=== PATIENT | male | born 1995 | race Caucasian/White ===

== ENCOUNTER 2019-09-30 11:47 | Inpatient (IN) | payer OTHER ==
[2019-09-30] MEDS ORDERED: MENTHOL/PHENOL 1 EACH UD MM PRN (12:33)
[2019-09-30] MEDS ORDERED: IBUPROFEN 400 MG TABLET (FP) PO PRN (12:33)
[2019-09-30] MEDS ORDERED: cloNIDine HCL 0.1 MG TABLET PO PRN (12:33)
[2019-09-30] MEDS ORDERED: ACETAMINOPHEN 325 MG TABLET (FP) PO PRN ×2 (12:33)
[2019-09-30] MEDS ORDERED: MAG HYDROX/AL HYDROX/SIMETH 30 ML UNIT-DOSE CUP PO PRN (12:33)
[2019-09-30] MEDS ORDERED: ONDANSETRON *ODT* 4 MG TABLET SL PRN (12:33)
[2019-09-30] MEDS ORDERED: BISMUTH SUBSALICYLATE 524 MG/30 ML UD PO PRN (12:33)
[2019-09-30] MEDS ORDERED: MAGNESIUM CITRATE 300 ML BOTTLE PO PRN (12:33)
[2019-09-30] MEDS ORDERED: MAGNESIUM HYDROX 2400MG/30ML ORAL SUSPENSION 30 ML CUP PO PRN (12:33)
[2019-09-30 12:34] VITALS: BMI 35.2
[2019-09-30] MEDS ORDERED: METHADONE HCL 10 MG TABLET (FOR DETOX USE ONLY) PO ONE (13:15)
[2019-09-30] MEDS: PRENATAL VITAMINS W/ FOLIC ACID TABLET (FP) PO SCH (13:21)
[2019-09-30] MEDS: hydrOXYzine PAMOATE 25 MG CAPSULE (FP) PO SCH ×3 (13:21→21:01)
[2019-09-30] MEDS: METHOCARBAMOL 500 MG TABLET PO PRN ×2 (13:21→21:01)
[2019-09-30 17:16] LABS: HEMATOCRIT 35.8 % (35.4-49); MCH 28.9 pg (25.7-33.7); MCHC 33.6 g/dl (32.0-35.9); MEAN CELL VOLUME 86.1 fl (80-96); MEAN PLT VOLUME 9.2 fl (7.5-11.1); PLATELET COUNT 269 K/MM3 (134-434); RBC 4.16 M/mm3 (4.00-5.60); RDW 14.1 % (11.9-15.9); WHITE BLOOD COUNT 6.3 K/mm3 (4.0-10.0)
[2019-09-30 17:28] LABS: ALBUMIN 4.3 g/dl (3.4-5.0); BILIRUBIN,TOTAL 0.6 mg/dL (0.2-1); CALCIUM 9.3 mg/dL (8.5-10.1); CREATININE 0.8 mg/dL (0.55-1.3); POTASSIUM 4.5 mmol/L (3.5-5.1); TOT PROT 7.4 g/dl (6.4-8.2)
[2019-09-30] MEDS ORDERED: MELATONIN 5 MG TABLETS PO SCH (22:00)
[2019-09-30] MEDS ORDERED: THIAMINE HCL 100 MG TABLET (FP) PO SCH (22:00)
[2019-10-01] MEDS: hydrOXYzine PAMOATE 25 MG CAPSULE (FP) PO SCH ×4 (05:52→17:52)
[2019-10-01] MEDS ORDERED: METHADONE HCL 10 MG TABLET (FOR DETOX USE ONLY) ONE (08:59)
[2019-10-01] MEDS ORDERED: METHADONE HCL 5 MG TABLET (FOR DETOX USE ONLY) ONE (09:00)
[2019-10-01] MEDS ORDERED: diazePAM 5 MG TABLET PO PRN (09:44)
[2019-10-01] MEDS ORDERED: METHADONE (DETOX) 20 MG, METHADONE (DETOX) 5 MG PO ONE (10:00)
[2019-10-01] MEDS: PRENATAL VITAMINS W/ FOLIC ACID TABLET (FP) PO SCH (10:23)
[2019-10-01 18:14] VITALS: BP 112/76; PULSE 65; TEMP 97.5
[2019-10-02] MEDS ORDERED: METHADONE HCL 10 MG TABLET (FOR DETOX USE ONLY) PO ONE (10:00)
[2019-10-03] MEDS ORDERED: METHADONE (DETOX) 10 MG, METHADONE (DETOX) 5 MG PO ONE (10:00)
[2019-10-04] MEDS ORDERED: METHADONE HCL 10 MG TABLET (FOR DETOX USE ONLY) PO ONE (10:00)
[2019-10-05] MEDS ORDERED: METHADONE HCL 5 MG TABLET (FOR DETOX USE ONLY) PO ONE (06:00)
== END 2019-10-01 18:02 | disposition left against medical advice (07) | DRG 770 ==
LOC: YASAS 11:47 → Y3N 12:56
PROVIDERS: ADMIT Allergy & Immunology; ATTEND Allergy & Immunology
PROC: HZ2ZZZZ Detoxification Services for Substance Abuse Treatment (ICD-10-PCS; principal; 2019-09-30)
DX: F11.23 Opioid dependence with withdrawal (principal); F14.20 Cocaine dependence, uncomplicated; F12.10 Cannabis abuse, uncomplicated; F17.210 Nicotine dependence, cigarettes, uncomplicated; Z59.0 Homelessness
CPT/HCPCS: 36415; 80053; 85027; 86780; 93005; 93010; J0735; Q0162; U0003

== ENCOUNTER 2020-01-20 12:02 | Inpatient (IN) | payer OTHER ==
--- NOTE | 2020-01-20 12:05 | BHS.RME ---
Substance Use & Tx History - Substance Use History Heroin Substance amount: 8-10 bags Frequency of use: Daily Substance route: Injection (ex: intravenous or skin popping) Date of Last Use: 01/19/20 (started age 19) Marijuana/Hashish Substance amount: 1 joint Frequency of use: Daily Substance route: Smoking Date of Last Use: 01/19/20 (started age 13) Benzodiazepines Substance amount: Xanax 2 mg - 1 tab Frequency of use: Less than 3 times per week Substance route: Oral Date of Last Use: 01/19/20 (started age 19) Nicotine Substance amount: 5 ciggs Frequency of use: Daily Substance route: Smoking Date of Last Use: 01/20/20 (started age 19) - Last Treatment Date of last treatment: 12/03-12/05/19 AMA Treatment type: Substance Use Disorder (JENNIFER) Where was last treatment: Detox Physical/Psych/Mental Status - Behavior General Behavior: Increased activity (restlessness, agitation) Eye Contact: Normal - Cooperativeness Cooperativeness: Cooperative - Thinking Thought Processes: Tight, Logical, Goal Directed - Physical Health Problems Is patient presently having any pain?: No Does patient presently have any injuries (include location): No Does patient currently have a fever: No Is patient : No COWS - Scale Resting Pulse: 0= VT 80 or Below Sweatin= No chills or Flushing Restless Observation: 1= Difficult to Sit Still Pupil Size: 1= Pupils >than Normal Bone or Joint Aches: 1= Mild Discomfort Runny Nose/ Eye Tearin= Runny Nose/Eyes GI Upset > 30mins: 1= Stomach Cramp Tremor Observation: 1= Tremor [place], Not Seen Yawning Observation: 1= 1-2x During Session Anxiety or Irritability: 1=Feels Anxious/Irritable Goose Flesh Skin: 3=Piloerection COWS Score: 12
[2020-01-20 12:30] VITALS: BMI 27.6
--- NOTE | 2020-01-20 12:45 | HP ---
COWS - Scale Resting Pulse: 0= NC 80 or Below Sweatin= No chills or Flushing Restless Observation: 1= Difficult to Sit Still Pupil Size: 1= Pupils >than Normal Bone or Joint Aches: 1= Mild Discomfort Runny Nose/ Eye Tearin= Runny Nose/Eyes GI Upset > 30mins: 1= Stomach Cramp Tremor Observation: 1= Tremor [place], Not Seen Yawning Observation: 1= 1-2x During Session Anxiety or Irritability: 1=Feels Anxious/Irritable Goose Flesh Skin: 3=Piloerection COWS Score: 12 CIWA Score - Admission Criteria [facility] Guidelines: Admission for Medically Managed Detox: Requires at least one of the followin. CIWA greater than 12 2. Seizures within the past 24 hours 3. Delirium tremens within the past 24 hours 4. Hallucinations within the past 24 hours 5. Acute intervention needed for co occurring medical disorder 6. Acute intervention needed for co occurring psychiatric disorder 7. Severe withdrawal that cannot be handled at a lower level of care (continued vomiting, continued diarrhea, abnormal vital signs) requiring intravenous medication and/or fluids 8. Admitting History and Physical - Admission History of Present Illness: 24 yo M presenting for opioid detox; "finally want to improve myself, stop the heroin, and get a job." Pt was at [facility] 09/29-09/30 (left AMA); 12/03-12/04 (left AMA). Pt reports no days of sobriety since leaving [facility] last time. He has agreed with a contract to stay for detox and rehab. Pt meets criteria due to high risk for OD and extent of substance use.. PMH - none PSH - none Psych - none Soc/Domiciled - homeless (will sleep at friends' or cousins' house, who use as well) Legal - none - Substance Use History Heroin Substance amount: 8-10 bags Frequency of use: Daily Substance route: Injection (ex: intravenous or skin popping) Date of Last Use: 01/19/20 (started age 19) Marijuana/Hashish Substance amount: 1 joint Frequency of use: Daily Substance route: Smoking Date of Last Use: 01/19/20 (started age 13) Benzodiazepines Substance amount: Xanax 2 mg - 1 tab Frequency of use: Less than 3 times per week Substance route: Oral Date of Last Use: 01/19/20 (started age 19) Nicotine Substance amount: 5 ciggs Frequency of use: Daily Substance route: Smoking Date of Last Use: 01/20/20 (started age 19) - Last Treatment Date of last treatment: 12/03-12/05/19 AMA Treatment type: Substance Use Disorder (JENNIFER) Where was last treatment: Detox History Source: Patient Limitations to Obtaining History: No Limitations - Smoking History Smoking history: Current every day smoker Have you smoked in the past 12 months: Yes Aproximately how many cigarettes per day: 5 Admission ROS S - HPI Allergies/Adverse Reactions: Allergies Allergy/AdvReac Type Severity Reaction Status Date / Time No Known Allergies Allergy Verified 12/04/19 12:19 - Ebola screening Have you traveled outside of the country in the last 21 days: No Have you been sick,other than usual withdrawal symptoms: No Do you have a fever: No - Review of Systems Constitutional: No Symptoms Reported, Diaphoresis, Changes in sleep (insomnia) EENT: reports: No Symptoms Reported Respiratory: reports: No Symptoms reported Cardiac: reports: No Symptoms Reported GI: reports: Constipated, Abdominal cramping : reports: No Symptoms Reported Musculoskeletal: reports: Muscle Pain (diffuse muscle aches) Integumentary: reports: No Symptoms Reported, Other (piloerection) Neuro: reports: Headache (mild headache), Tremors (felt, not seen) Endocrine: reports: No Symptoms Reported Hematology: reports: No Symptoms Reported Psychiatric: reports: Orientated x3, Agitated, Anxious, Depressed (no SI/HI) Patient History - Patient Medical History Hx Asthma: No Hx Chronic Obstructive Pulmonary Disease (COPD): No Hx Cardiac Disorders: No Hx Hypertension: No Hx Seizures: No Hx Diabetes: No Hx Gastrointestinal Disorders: No Hx Genitourinary Disorders: No Hx Sexually Transmitted Disorders: No Hx Renal Disease (ESRD): No Hx Depression: Yes Hx Suicide Attempt: No Hx Schizophrenia: No - Patient Surgical History Past Surgical History: No Hx Neurologic Surgery: No Hx Cataract Extraction: No Hx Cardiac Surgery: No Hx Lung Surgery: No Hx Breast Surgery: No Hx Breast Biopsy: No Hx Abdominal Surgery: No Hx Appendectomy: No Hx Cholecystectomy: No Hx Genitourinary Surgery: No Hx Section: No Hx Orthopedic Surgery: No Anesthesia Reaction: No - PPD History Date: 12/06/19 - Smoking Cessation Smoking history: Current every day smoker Have you smoked in the past 12 months: Yes Aproximately how many cigarettes per day: 5 Cigars Per Day: 0 Hx Chewing Tobacco Use: No Initiated information on smoking cessation: Yes 'Breaking Loose' booklet given: 01/20/20 Admission Physical Exam [facility] - Vital Signs Vital Signs: Vital Signs - 24 hr 01/20/20 12:28 Temperature 97.0 F L Pulse Rate 76 Respiratory 18 Rate - Physical General Appearance: Yes: No Apparent Distress, Nourished, Appropriately Dressed HEENTM: Yes: EOMI, Hearing grossly Normal, Normocephalic, Normal Voice Respiratory: Yes: Lungs Clear, Normal Breath Sounds, No Respiratory Distress, No Accessory Muscle Use Neck: Yes: Supple, Trachea in good position Breast: Yes: Breast Exam Deferred Cardiology: Yes: Regular Rhythm, Regular Rate Abdominal: Yes: Normal Bowel Sounds, Non Tender, Flat, Soft Genitourinary: Yes: Other (deferred) Back: Yes: Normal Inspection Musculoskeletal: Yes: full range of Motion, Gait Steady Extremities: Yes: Normal Inspection, Normal Range of Motion, Non-Tender, Tremors (felt; not seen) Neurological: Yes: Fully Oriented, Alert, Motor Strength 5/5 Integumentary: Yes: Normal Color, Dry, Warm, Other (IV sites of heroin use clean, dry, intact (no increased warmth, redness)) Cleared for Admission [facility] - Detox or Rehab [facility] Level of Care: Medically Managed Detox Regimen/Protocol: Methadone Breathalyzer - Breathalyzer Breathalyzer: 0 Urine Drug Screen - Test Device Lot number: [id number] Expiration date: 07/29/21 - Control Is test valid?: Yes - Results Drug screen NEGATIVE: No Urine drug screen results: THC-Marijuana, FEN-Fentanyl, MOP-Opiates, BZO- Benzodiazepines Inpatient Rehab Admission - Rehab Decision to Admit Inpatient rehab admission?: No
[2020-01-20] MEDS ORDERED: METHOCARBAMOL 500 MG TABLET PO PRN (13:08)
[2020-01-20] MEDS ORDERED: IBUPROFEN 400 MG TABLET (FP) PO PRN (13:08)
[2020-01-20] MEDS ORDERED: MENTHOL/PHENOL 1 EACH UD MM PRN (13:08)
[2020-01-20] MEDS ORDERED: MAGNESIUM CITRATE 300 ML BOTTLE PO PRN (13:08)
[2020-01-20] MEDS ORDERED: MAG HYDROX/AL HYDROX/SIMETH 30 ML UNIT-DOSE CUP PO PRN (13:08)
[2020-01-20] MEDS ORDERED: cloNIDine HCL 0.1 MG TABLET PO PRN (13:08)
[2020-01-20] MEDS ORDERED: ONDANSETRON *ODT* 4 MG TABLET SL PRN (13:08)
[2020-01-20] MEDS ORDERED: MAGNESIUM HYDROX 2400MG/30ML ORAL SUSPENSION 30 ML CUP PO PRN (13:08)
[2020-01-20] MEDS ORDERED: NICOTINE POLACRILEX 2 MG GUM BUC PRN (13:08)
[2020-01-20] MEDS ORDERED: ACETAMINOPHEN 325 MG TABLET (FP) PO PRN ×2 (13:08)
[2020-01-20] MEDS ORDERED: BISMUTH SUBSALICYLATE 262 MG/15 ML BTL PO PRN (13:08)
[2020-01-20] MEDS: NICOTINE 14 MG/24 HOURS TOPICAL PATCH TD SCH (13:56)
[2020-01-20] MEDS ORDERED: METHADONE HCL 10 MG TABLET (FOR DETOX USE ONLY) PO ONE (14:00)
[2020-01-20] MEDS: hydrOXYzine PAMOATE 25 MG CAPSULE (FP) PO SCH ×3 (14:00→21:30)
--- OUTSIDE RECORDS SUMMARY | 2020-01-20 14:11 | XMS ---
:1995 Author Organization [facility] Care Team Providers Name Role Phone Bernardino Jansen MD Unavailable Unavailable Jonathan Jansen MD Unavailable Unavailable Jonathan Jansen MD Unavailable Unavailable Re-disclosure Warning The records that you are about to access may contain information from federally- assisted alcohol or drug abuse programs. If such information is present, then the following federally mandated warning applies: This information has been disclosed to you from records protected by federal confidentiality rules (42 CFR part 2). The federal rules prohibit you from making any further disclosure of this information unless further disclosure is expressly permitted by the written consent of the person to whom it pertains or as otherwise permitted by 42 CFR part 2. A general authorization for the release of medical or other information is NOT sufficient for this purpose. The Federal rules restrict any use of the information to criminally investigate or prosecute any alcohol or drug abuse patient.The records that you are about to access may contain highly sensitive health information, the redisclosure of which is protected by Article 27-F of the [facility] Public Health law. If you continue you may haveaccess to information: Regarding HIV / AIDS; Provided by facilities licensed or operated by the [facility] Office of Mental Health; or Provided by the [facility] Office for People With Developmental Disabilities. If such information is present, then the following [facility] mandated warning applies: This information has been disclosed to you from confidential records which are protected by state law. State law prohibits you from making any further disclosure of this information without the specific written consent of the person to whom it pertains, or as otherwise permitted by law. Any unauthorized further disclosure in violation of state law may result in a fine or assisted sentence or both. A general authorization for the release of medical or other information is NOT sufficient authorization for further disclosure. Allergies and Adverse Reactions Type Description Substance Reaction Status Data Source(s ) Drug allergy No Known Allergies No Known Allergies [facility] Encounters Encounter Providers Location Date Indications Data Source(s ) Emergency Attender: Bernardino 05/24/2018 [facility] Justyna COHEN 12:36:00 PM [facility] - 05/24/2018 05:57:00 PM [facility] Medications Medication Brand Start Product Dose Route Administrative Pharmacy [facility] Indications Reaction Description Data Name Date Form Instructions Instructions Source(s) Trazodone Trazod 05/24/ TABLET 50 MG BY complet ONCE DAILY [facility] 2018 MOUTH ed AT BEDTIME R egional de 50 MG Hcl 12:00: Hospital Oral Tablet 00 AM of [facility] Trazodone EST Hcl Trazodone Trazod 05/24/ TABLET 50 MG BY complet ONCE DAILY [facility] 2018 MOUTH ed AT BEDTIME R egional de 50 MG Hcl 12:00: Hospital Oral Tablet 00 AM of [facility] Trazodone EST Hcl Trazodone Trazod 05/24/ TABLET 50 MG BY complet ONCE DAILY [place] Hydrochlori 2018 MOUTH ed AT BEDTIME R egional de 50 MG Hcl 12:00: Hospital Oral Tablet 00 AM of [facility] Trazodone EST Hcl Trazodone Trazod 05/24/ TABLET 50 MG [facility] AT BEDTIME R egional de 50 MG Hcl 12:00: Hospital Oral Tablet 00 AM of [facility] Trazodone EST Hcl Trazodone Trazod 05/24/ TABLET 50 MG BY complet ONCE DAILY [place] Hydrochlori 2018 MOUTH ed AT BEDTIME R egional de 50 MG Hcl 12:00: Hospital Oral Tablet 00 AM of [facility] Trazodone EST Hcl Trazodone Trazod 05/24/ TABLET 50 MG BY complet ONCE DAILY [place] Hydrochlori 2018 MOUTH ed AT BEDTIME R egional de 50 MG Hcl 12:00: Hospital Oral Tablet 00 AM of [facility] Trazodone EST Hcl Trazodone Trazod 05/24/ TABLET 50 MG BY complet ONCE DAILY [facility] one 2018 MOUTH ed AT BEDTIME R egional de 50 MG Hcl 12:00: Hospital Oral Tablet 00 AM of [facility] Trazodone EST Hcl Trazodone Trazod 05/24/ TABLET 50 MG BY complet ONCE DAILY [place] Hydrochlori one 2018 MOUTH ed AT BEDTIME R egional de 50 MG Hcl 12:00: Hospital Oral Tablet 00 AM of [facility] Trazodone EST Hcl Insurance Providers Payer name Policy type Policy ID Covered Covered libertarian's Policy P lorraine / Coverage libertarian ID relationship to Ritchie Inf ormation type ritchie [employer] [id number] SP [id number] [facility] [id number] HMO Problems, Conditions, and Diagnoses Code Display Name Description Problem Type Effective Data Sour ce(s) Dates F12.90 Cannabis use, CANNABIS USE, Diagnosis 05/24/2018 [facility] [place], U[place]PECIFIED, 12:36:00 PM Regional uncomplicated UNCOMPLICATED [facility] F11.10 Opioid abuse, OPIOID ABUSE, Diagnosis 05/24/2018 [facility] [place]complicated UNCOMPLICATED 12:36:00 PM Regiona l [facility] F39 Unspecified mood UNSPECIFIED MOOD Diagnosis 05/24/2018 [facility] [affective] [AFFECTIVE] 12:36:00 PM Regional disorder DISORDER [facility] F32.9 Major depressive MAJOR DEPRESSIVE Diagnosis 05/24/2018 [place] disorder, single DISORDER, SINGLE 12:36:00 PM R egional episode, EPISODE, [facility] Hospital of unspecified UNSPECIFIED [facility] Surgeries/Procedures Procedure Description Date Indications Data Source(s) EKG EMERGENCY DEPT 05/24/2018 [facility] ONLY 12:00:00 AM [facility] EKG EMERGENCY DEPT 05/24/2018 [facility] ONLY 12:00:00 AM [facility] EKG EMERGENCY DEPT 05/24/2018 [facility] ONLY 12:00:00 AM [facility] EKG EMERGENCY DEPT 05/24/2018 [facility] ONLY 12:00:00 AM [facility] Results ID Date Data Source [id number] 12/04/2019 12:05:00 PM EDT [facility] Name Value Range Interpretation Description Data Sup porting Code Source(s) Document(s ) SARS [facility] coronavirus 2 RNA This lab was ordered by [facility] and reported by [facility]. ID Date Data Source [id number] 09/30/2019 02:30:00 PM EDT [facility] Name Value Range Interpretation Description Data Sup porting Code Source(s) Document(s ) SARS [facility] CORONAVIRUS 2 RNA This lab was ordered by [facility] and reported by [facility]. ID Date Data Source [id number] 05/24/2018 03:35:00 PM [facility] of [id number] [facility] Name Value Range Interpretation Description Data Sup porting Code Source(s) Document(s ) Basophils 0.01 0.00-0.3 Basophils # [place] [#/volume] K/uL 0 (Auto) Regional in Blood by Hospital Automated [facility] count ID Date Data Source [id number] 05/24/2018 03:35:00 PM [facility] of [id number] [facility] Name Value Range Interpretation Description Data Sup porting Code Source(s) Document(s ) Basophils/100 0.1 % Basophils (%) [place] leukocytes in (Auto) Regional Blood by Hospital Automated [facility] count ID Date Data Source [id number] 05/24/2018 03:35:00 PM [facility] of [id number] [facility] Name Value Range Interpretation Description Data Sup porting Code Source(s) Document(s ) Eosinophils 0.03 0.00-0.5 Eosinophils # [place] [#/volume] in K/uL 0 (Auto) Regional Blood by Hospital Automated [facility] count ID Date Data Source [id number] 05/24/2018 03:35:00 PM [facility] of [id number] [facility] Name Value Range Interpretation Description Data Sup porting Code Source(s) Document(s ) Eosinophils/10 0.4 % Eosinophils (%) [place] 0 leukocytes (Auto) Regional in Blood by [facility] Automated [facility] count ID Date Data Source [id number] 05/24/2018 03:35:00 PM [facility] of [id number] [facility] Name Value Range Interpretation Description Data Sup porting Code Source(s) Document(s ) Hematocrit 40.9 % 38.0-51.0 Hematocrit [place] [Volume Regional Fraction] [facility] Blood by [facility] Automated count ID Date Data Source [id number] 05/24/2018 03:35:00 PM [facility] of [id number] [facility] Name Value Range Interpretation Description Data Sup porting Code Source(s) Document(s ) Hemoglobin 13.2 13.5-17. Below low normal Hemoglobin [place] [Mass/volume] gm/dL 0 Regional in Blood Hospital [facility] ID Date Data Source [id number] 05/24/2018 03:35:00 PM [facility] of [id number] [facility] Name Value Range Interpretation Description Data Sup porting Code Source(s) Document(s ) Immature 0.02 0.00-0.1 Immature [place] granulocytes K/uL 0 Granulocyte # Regional [#/volume] in (Auto) Hospital Blood [facility] ID Date Data Source [id number] 05/24/2018 03:35:00 PM [facility] of [id number] [facility] Name Value Range Interpretation Description Data Sup porting Code Source(s) Document(s ) Immature 0.2 % Immature [place] granulocytes Granulocyte % Regional [#/volume] in (Auto) Hospital Blood by [facility] Automated count ID Date Data Source [id number] 05/24/2018 03:35:00 PM [facility] of [id number] [facility] Name Value Range Interpretation Description Data Sup porting Code Source(s) Document(s ) Lymphocytes 1.86 0.60-4.8 Lymphocytes # [place] [#/volume] in K/uL 0 (Auto) Regional Blood by Hospital of Automated [facility] count ID Date Data Source [id number] 05/24/2018 03:35:00 PM [facility] of [id number] [facility] Name Value Range Interpretation Description Data Sup porting Code Source(s) Document(s ) Lymphocytes/10 23.0 % Lymphocytes [place] 0 leukocytes (%) (Auto) Regional in Blood by Hospital of Automated [facility] count ID Date Data Source [id number] 05/24/2018 03:35:00 PM [facility] of [id number] [facility] Name Value Range Interpretation Description Data Sup porting Code Source(s) Document(s ) Erythrocyte 27.4 pg 26.0-34. Mean [place] mean 0 Corpuscular Regional corpuscular Hemoglobin Hospital of hemoglobin [facility] [Entitic mass] by Automated count ID Date Data Source [id number] 05/24/2018 03:35:00 PM [facility] of [id number] [facility] Name Value Range Interpretation Description Data Sup porting Code Source(s) Document(s ) Erythrocyte mean 32.3 32.0-36. Mean [place] corpuscular gm/dL 0 Corpuscular Regional hemoglobin Hemoglobin Hospital of concentration Concent [facility] [Mass/volume] by Automated count ID Date Data Source [id number] 05/24/2018 03:35:00 PM [facility] of [id number] [facility] Name Value Range Interpretation Description Data Sup porting Code Source(s) Document(s ) Erythrocyte 84.9 fL 80.0-98. Mean [place] mean 0 Corpuscular Regional corpuscular Volume Hospital of volume [facility] [Entitic volume] by Automated count ID Date Data Source [id number] 05/24/2018 03:35:00 PM [facility] of [id number] [facility] Name Value Range Interpretation Description Data Sup porting Code Source(s) Document(s ) Platelet mean 9.6 fL 8.5-13.0 Mean Platelet [place] volume Volume Regional [Entitic Hospital of volume] in C Blood by Automated count ID Date Data Source [id number] 05/24/2018 03:35:00 PM [facility] [id number] [facility] Name Value Range Interpretation Description Data Sup porting Code Source(s) Document(s ) Monocytes 0.62 0.00-1.1 Monocytes # [place] [#/volume] K/uL 0 (Auto) Regional in Blood by [facility] Automated [facility] count ID Date Data Source [id number] 05/24/2018 03:35:00 PM [facility] [id number] [facility] Name Value Range Interpretation Description Data Sup porting Code Source(s) Document(s ) Monocytes/100 7.7 % Monocytes (%) [place] leukocytes in (Auto) Regional Blood by Hospital Automated [facility] count ID Date Data Source [id number] 05/24/2018 03:35:00 PM [facility] [id number] [facility] Name Value Range Interpretation Description Data Sup porting Code Source(s) Document(s ) Neutrophils 5.53 2.00-8.4 Neutrophils # [place] [#/volume] in K/uL 0 (Auto) Regional Blood by Hospital Automated [facility] count ID Date Data Source [id number] 05/24/2018 03:35:00 PM [facility] [id number] [facility] Name Value Range Interpretation Description Data Sup porting Code Source(s) Document(s ) Neutrophils/10 68.6 % Neutrophils [place] 0 leukocytes (%) (Auto) Regional in Blood by Hospital Automated [facility] count ID Date Data Source [id number] 05/24/2018 03:35:00 PM [facility] [id number] [facility] Name Value Range Interpretation Description Data Sup porting Code Source(s) Document(s ) Nucleated 0.0 % 0.0-0.0 Nucleated RBC [place] erythrocytes/1 Relative Count Regional 00 leukocytes (auto) Hospital of [Ratio] in [facility] Blood by Automated count ID Date Data Source [id number] 05/24/2018 03:35:00 PM [facility] of [id number] [facility] Name Value Range Interpretation Description Data Sup porting Code Source(s) Document(s ) Platelets 400 K/uL 150-400 Platelet Count [place] [#/volume] Regional in Blood by Hospital Automated [facility] count ID Date Data Source [id number] 05/24/2018 03:35:00 PM [facility] of [id number] [facility] Name Value Range Interpretation Description Data Sup porting Code Source(s) Document(s ) Erythrocyte 14.5 % 11.0-15. RDW [place] distribution 0 Coefficient of Regional width [Ratio] Variation Hospital of by Automated [facility] count ID Date Data Source [id number] 05/24/2018 03:35:00 PM [facility] of [id number] [facility] Name Value Range Interpretation Description Data Sup porting Code Source(s) Document(s ) Erythrocytes 4.82 4.7-6.0 Red Blood [place] [#/volume] in M/uL Count Regional Blood by Hospital of Automated count [facility] ID Date Data Source [id number] 05/24/2018 03:35:00 PM [facility] of [id number] [facility] Name Value Range Interpretation Description Data Sup porting Code Source(s) Document(s ) Leukocytes 8.07 4.00-10. White Blood [place] [#/volume] in K/uL 50 Count Regional Blood by Hospital of Automated [facility] count ID Date Data Source [id number] 05/24/2018 03:35:00 PM [facility] of [id number] [facility] Name Value Range Interpretation Description Data Sup porting Code Source(s) Document(s ) Alanine 42 U/L 21-72 Alanine [place] aminotransferase Aminotransferase Region al [Enzymatic (ALT/SGPT) Hospital activity/volume] of [facility] in Serum or Plasma ID Date Data Source [id number] 05/24/2018 03:35:00 PM [facility] of [id number] [facility] Name Value Range Interpretation Description Data Sup porting Code Source(s) Document(s ) Albumin 4.7 g/dL 3.5-5.0 Albumin [place] [Mass/volum Regional e] in Serum Hospital of or Plasma [facility] ID Date Data Source [id number] 05/24/2018 03:35:00 PM [facility] of [id number] [facility] Name Value Range Interpretation Description Data Sup porting Code Source(s) Document(s ) Alkaline 60 U/L 38-126 Alkaline [place] phosphatase Phosphatase Regional [Enzymatic Hospital of activity/volum [facility] e] in Serum or Plasma ID Date Data Source [id number] 05/24/2018 03:35:00 PM [facility] of [id number] [facility] Name Value Range Interpretation Description Data Sup porting Code Source(s) Document(s ) Aspartate 19 U/L 17-59 Aspartate [place] aminotransferase Amino Transf Regional [Enzymatic (AST/SGOT) Hospital of activity/volume] in [facility] Serum or Plasma ID Date Data Source [id number] 05/24/2018 03:35:00 PM [facility] of [id number] [facility] Name Value Range Interpretation Description Data Sup porting Code Source(s) Document(s ) Urea 15 mg/dL 9-20 Blood Urea [place] nitrogen Nitrogen Regional [Mass/volume Hospital of ] in Serum C or Plasma ID Date Data Source [id number] 05/24/2018 03:35:00 PM [facility] of [id number] [facility] Name Value Range Interpretation Description Data Sup porting Code Source(s) Document(s ) Calcium 9.8 mg/dL 8.4-10.2 Calcium Level [place] [Mass/volum Regional e] in Serum Hospital of or Plasma [facility] ID Date Data Source [id number] 05/24/2018 03:35:00 PM [facility] of [id number] [facility] Name Value Range Interpretation Description Data Sup porting Code Source(s) Document(s ) Carbon 29 mmol/L 22-30 Carbon Dioxide [place] dioxide, Level Regional [facility] Hospital of [Moles/vol [facility] ume] in Serum or Plasma ID Date Data Source [id number] 05/24/2018 03:35:00 PM [facility] of [id number] [facility] Name Value Range Interpretation Description Data Sup porting Code Source(s) Document(s ) Chloride 104 98-107 Chloride Level [place] [Moles/volum mmol/L Regional e] in [facility] ID Date Data Source [id number] 05/24/2018 03:35:00 PM [facility] of [id number] [facility] Name Value Range Interpretation Description Data Sup porting Code Source(s) Document(s ) Creatinine 0.77 0.66-1.2 Creatinine [place] [Mass/volume] mg/dL 5 Regional in Serum or [facility] of Plasma [facility] ID Date Data Source [id number] 05/24/2018 03:35:00 PM [facility] of [id number] [facility] mL/min/1.73m2 Name Value Range Interpretation Code Description Data Asiya rce(s) Supporting Document(s ) Estimated GFR [place] (MDRD) [facility] ID Date Data Source [id number] 05/24/2018 03:35:00 PM [facility] of [id number] [facility] Name Value Range Interpretation Description Data Sup porting Code Source(s) Document(s ) Glucose 83 mg/dL 74-106 Fasting [place] [Mass/volum Glucose Regional e] in [facility] ID Date Data Source [id number] 05/24/2018 03:35:00 PM [facility] of [id number] [facility] Name Value Range Interpretation Description Data Sup porting Code Source(s) Document(s ) Potassium 4.0 3.5-5.1 Potassium [place] [Moles/volum mmol/L Level Regional e] in [facility] ID Date Data Source [id number] 05/24/2018 03:35:00 PM [facility] of [id number] [facility] Name Value Range Interpretation Description Data Sup porting Code Source(s) Document(s ) Sodium 142 137-145 Sodium Level [place] [Moles/vol mmol/L Regional ume] in Hospital [facility] or [facility] Plasma ID Date Data Source [id number] 05/24/2018 03:35:00 PM [facility] of [id number] [facility] Name Value Range Interpretation Description Data Sup porting Code Source(s) Document(s ) Bilirubin. 0.7 mg/dL 0.2-1.3 Total [place] total Bilirubin Regional [Mass/volu [facility]] in [facility] Serum or Plasma ID Date Data Source [id number] 05/24/2018 03:35:00 PM [facility] of [id number] [facility] Name Value Range Interpretation Description Data Sup porting Code Source(s) Document(s ) Protein 7.6 g/dL 6.3-8.2 Total Protein [place] [Mass/volum Regional e] in [facility] ID Date Data Source [id number] 05/24/2018 03:35:00 PM [facility] of [id number] [facility] Name Value Range Interpretation Description Data Sup porting Code Source(s) Document(s ) Ethanol 0 mg/dL Ethyl Alcohol [place] [Mass/volum Level Regional e] in [facility] ID Date Data Source [id number] 05/24/2018 03:35:00 PM [facility] of [id number] [facility] Name Value Range Interpretation Description Data Sup porting Code Source(s) Document(s ) Basophils 0.01 0.00-0.3 Basophils # [place] [#/volume] K/uL 0 (Auto) Regional in Blood by Hospital Automated [facility] count ID Date Data Source [id number] 05/24/2018 03:35:00 PM [facility] of [id number] [facility] Name Value Range Interpretation Description Data Sup porting Code Source(s) Document(s ) Basophils/100 0.1 % Basophils (%) [place] leukocytes in (Auto) Regional Blood by Hospital Automated [facility] count ID Date Data Source [id number] 05/24/2018 03:35:00 PM [facility] of [id number] [facility] Name Value Range Interpretation Description Data Sup porting Code Source(s) Document(s ) Eosinophils 0.03 0.00-0.5 Eosinophils # [place] [#/volume] in K/uL 0 (Auto) Regional Blood by Hospital Automated [facility] count ID Date Data Source [id number] 05/24/2018 03:35:00 PM [facility] of [id number] [facility] Name Value Range Interpretation Description Data Sup porting Code Source(s) Document(s ) Eosinophils/10 0.4 % Eosinophils (%) [place] 0 leukocytes (Auto) Regional in Blood by Hospital Automated [facility] count ID Date Data Source [id number] 05/24/2018 03:35:00 PM [facility] of [id number] [facility] Name Value Range Interpretation Description Data Sup porting Code Source(s) Document(s ) Hematocrit 40.9 % 38.0-51.0 Hematocrit [place] [Volume Regional Fraction] of [facility] Blood by [facility] Automated count ID Date Data Source [id number] 05/24/2018 03:35:00 PM [facility] of [id number] [facility] Name Value Range Interpretation Description Data Sup porting Code Source(s) Document(s ) Hemoglobin 13.2 13.5-17. Below low normal Hemoglobin [place] [Mass/volume] gm/dL 0 Regional in Blood [facility] ID Date Data Source [id number] 05/24/2018 03:35:00 PM [facility] of [id number] [facility] Name Value Range Interpretation Description Data Sup porting Code Source(s) Document(s ) Immature 0.02 0.00-0.1 Immature [place] granulocytes K/uL 0 Granulocyte # Regional [#/volume] in (Auto) Hospital Blood [facility] ID Date Data Source [id number] 05/24/2018 03:35:00 PM [facility] of [id number] [facility] Name Value Range Interpretation Description Data Sup porting Code Source(s) Document(s ) Immature 0.2 % Immature [place] granulocytes Granulocyte % Regional [#/volume] in (Auto) Hospital Blood by [facility] Automated count ID Date Data Source [id number] 05/24/2018 03:35:00 PM [facility] [id number] WM Name Value Range Interpretation Description Data Sup porting Code Source(s) Document(s ) Lymphocytes 1.86 0.60-4.8 Lymphocytes # [place] [#/volume] in K/uL 0 (Auto) Regional Blood by Hospital Automated [facility] count ID Date Data Source [id number] 05/24/2018 03:35:00 PM [facility] [id number] [facility] Name Value Range Interpretation Description Data Sup porting Code Source(s) Document(s ) Lymphocytes/10 23.0 % Lymphocytes [place] 0 leukocytes (%) (Auto) Regional in Blood by [facility] Automated [facility] count ID Date Data Source [id number] 05/24/2018 03:35:00 PM [facility] [id number] [facility] Name Value Range Interpretation Description Data Sup porting Code Source(s) Document(s ) Erythrocyte 27.4 pg 26.0-34. Mean [place] mean 0 Corpuscular [facility] corpuscular Hemoglobin [facility] hemoglobin [facility] [Entitic mass] by Automated count ID Date Data Source [id number] 05/24/2018 03:35:00 PM [facility] of [id number] [facility] Name Value Range Interpretation Description Data Sup porting Code Source(s) Document(s ) Erythrocyte mean 32.3 32.0-36. Mean [place] corpuscular gm/dL 0 Corpuscular Regional hemoglobin Hemoglobin [facility] [Mass/volume] by Automated count ID Date Data Source [id number] 05/24/2018 03:35:00 PM [facility] [id number] [facility] Name Value Range Interpretation Description Data Sup porting Code Source(s) Document(s ) Erythrocyte 84.9 fL 80.0-98. Mean [place] mean 0 Corpuscular [facility] corpuscular Volume [facility] volume [facility] [Entitic volume] by Automated count ID Date Data Source [id number] 05/24/2018 03:35:00 PM [facility] of [id number] [facility] Name Value Range Interpretation Description Data Sup porting Code Source(s) Document(s ) Platelet mean 9.6 fL 8.5-13.0 Mean Platelet [place] volume Volume Regional [Entitic Hospital of volume] in C Blood by Automated count ID Date Data Source [id number] 05/24/2018 03:35:00 PM [facility] [id number] [facility] Name Value Range Interpretation Description Data Sup porting Code Source(s) Document(s ) Monocytes 0.62 0.00-1.1 Monocytes # [place] [#/volume] K/uL 0 (Auto) Regional in Blood by [facility] count ID Date Data Source [id number] 05/24/2018 03:35:00 PM [facility] [id number] [facility] Name Value Range Interpretation Description Data Sup porting Code Source(s) Document(s ) Monocytes/100 7.7 % Monocytes (%) [place] leukocytes in (Auto) Regional Blood by Hospital Automated [facility] count ID Date Data Source [id number] 05/24/2018 03:35:00 PM [facility] [id number] [facility] Name Value Range Interpretation Description Data Sup porting Code Source(s) Document(s ) Neutrophils 5.53 2.00-8.4 Neutrophils # [place] [#/volume] in K/uL 0 (Auto) Regional Blood by [facility] Automated [facility] count ID Date Data Source [id number] 05/24/2018 03:35:00 PM [facility] [id number] [facility] Name Value Range Interpretation Description Data Sup porting Code Source(s) Document(s ) Neutrophils/10 68.6 % Neutrophils [place] 0 leukocytes (%) (Auto) Regional in Blood by Hospital Automated [facility] count ID Date Data Source [id number] 05/24/2018 03:35:00 PM [facility] [id number] [facility] Name Value Range Interpretation Description Data Sup porting Code Source(s) Document(s ) Nucleated 0.0 % 0.0-0.0 Nucleated RBC [place] erythrocytes/1 Relative Count Regional 00 leukocytes (auto) Hospital of [Ratio] in [facility] Blood by Automated count ID Date Data Source [id number] 05/24/2018 03:35:00 PM [facility] [id number] [facility] Name Value Range Interpretation Description Data Sup porting Code Source(s) Document(s ) Platelets 400 K/uL 150-400 Platelet Count [place] [#/volume] Regional in Blood by Hospital of Automated [facility] count ID Date Data Source [id number] 05/24/2018 03:35:00 PM [facility] [id number] [facility] Name Value Range Interpretation Description Data Sup porting Code Source(s) Document(s ) Erythrocyte 14.5 % 11.0-15. RDW [place] distribution 0 Coefficient of Regional width [Ratio] Variation Hospital of by Automated [facility] count ID Date Data Source [id number] 05/24/2018 03:35:00 PM [facility] [id number] [facility] Name Value Range Interpretation Description Data Sup porting Code Source(s) Document(s ) Erythrocytes 4.82 4.7-6.0 Red Blood [place] [#/volume] in M/uL Count Regional Blood by Hospital of Automated count [facility] ID Date Data Source [id number] 05/24/2018 03:35:00 PM [facility] [id number] [facility] Name Value Range Interpretation Description Data Sup porting Code Source(s) Document(s ) Leukocytes 8.07 4.00-10. White Blood [place] [#/volume] in K/uL 50 Count Regional Blood by Hospital of Automated [facility] count ID Date Data Source [id number] 05/24/2018 03:35:00 PM [facility] [id number] [facility] Name Value Range Interpretation Description Data Sup porting Code Source(s) Document(s ) Alanine 42 U/L 21-72 Alanine [place] aminotransferase Aminotransferase Region al [Enzymatic (ALT/SGPT) Hospital activity/volume] of [facility] in Serum or Plasma ID Date Data Source [id number] 05/24/2018 03:35:00 PM [facility] of [id number] [facility] Name Value Range Interpretation Description Data Sup porting Code Source(s) Document(s ) Albumin 4.7 g/dL 3.5-5.0 Albumin [place] [Mass/volum Regional e] in Serum Hospital of or Plasma [facility] ID Date Data Source [id number] 05/24/2018 03:35:00 PM [facility] of [id number] [facility] Name Value Range Interpretation Description Data Sup porting Code Source(s) Document(s ) Alkaline 60 U/L 38-126 Alkaline [place] phosphatase Phosphatase Regional [Enzymatic Hospital of activity/volum [facility] e] in Serum or Plasma ID Date Data Source [id number] 05/24/2018 03:35:00 PM [facility] of [id number] [facility] Name Value Range Interpretation Description Data Sup porting Code Source(s) Document(s ) Aspartate 19 U/L 17-59 Aspartate [place] aminotransferase Amino Transf Regional [Enzymatic (AST/SGOT) Hospital of activity/volume] in [facility] Serum or Plasma ID Date Data Source [id number] 05/24/2018 03:35:00 PM [facility] [id number] [facility] Name Value Range Interpretation Description Data Sup porting Code Source(s) Document(s ) Urea 15 mg/dL 9-20 Blood Urea [place] nitrogen Nitrogen Regional [Mass/volume Hospital of ] in Serum [facility] or Plasma ID Date Data Source [id number] 05/24/2018 03:35:00 PM [facility] of [id number] [facility] Name Value Range Interpretation Description Data Sup porting Code Source(s) Document(s ) Calcium 9.8 mg/dL 8.4-10.2 Calcium Level [place] [Mass/volum Regional e] in Serum Hospital of or Plasma [facility] ID Date Data Source [id number] 05/24/2018 03:35:00 PM [facility] of [id number] [facility] Name Value Range Interpretation Description Data Sup porting Code Source(s) Document(s ) Carbon 29 mmol/L 22-30 Carbon Dioxide [place] dioxide, Level Regional total Hospital of [Moles/vol [facility] ume] in Serum or Plasma ID Date Data Source [id number] 05/24/2018 03:35:00 PM [facility] of [id number] [facility] Name Value Range Interpretation Description Data Sup porting Code Source(s) Document(s ) Chloride 104 98-107 Chloride Level [place] [Moles/volum mmol/L Regional e] in [facility] ID Date Data Source [id number] 05/24/2018 03:35:00 PM [facility] of [id number] [facility] Name Value Range Interpretation Description Data Sup porting Code Source(s) Document(s ) Creatinine 0.77 0.66-1.2 Creatinine [place] [Mass/volume] mg/dL 5 Regional in [facility] ID Date Data Source [id number] 05/24/2018 03:35:00 PM [facility] of [id number] C mL/min/1.73m2 Name Value Range Interpretation Code Description Data Asiya rce(s) Supporting Document(s ) Estimated GFR [place] (MDRD) [facility] ID Date Data Source [id number] 05/24/2018 03:35:00 PM [facility] [id number] [facility] Name Value Range Interpretation Description Data Sup porting Code Source(s) Document(s ) Glucose 83 mg/dL 74-106 Fasting [place] [Mass/volum Glucose Regional e] in [facility] ID Date Data Source [id number] 05/24/2018 03:35:00 PM [facility] of [id number] [facility] Name Value Range Interpretation Description Data Sup porting Code Source(s) Document(s ) Potassium 4.0 3.5-5.1 Potassium [place] [Moles/volum mmol/L Level Regional e] in [facility] ID Date Data Source [id number] 05/24/2018 03:35:00 PM [facility] of [id number] [facility] Name Value Range Interpretation Description Data Sup porting Code Source(s) Document(s ) Sodium 142 137-145 Sodium Level [place] [Moles/vol mmol/L Regional ume] in Hospital of Serum or [facility] Plasma ID Date Data Source [id number] 05/24/2018 03:35:00 PM [facility] [id number] [facility] Name Value Range Interpretation Description Data Sup porting Code Source(s) Document(s ) Bilirubin. 0.7 mg/dL 0.2-1.3 Total [place] total Bilirubin Regional [Mass/volu [facility]] in [facility] Serum or Plasma ID Date Data Source [id number] 05/24/2018 03:35:00 PM [facility] of [id number] [facility] Name Value Range Interpretation Description Data Sup porting Code Source(s) Document(s ) Protein 7.6 g/dL 6.3-8.2 Total Protein [place] [Mass/volum Regional e] in [facility] ID Date Data Source [id number] 05/24/2018 03:35:00 PM [facility] [id number] [facility] Name Value Range Interpretation Description Data Sup porting Code Source(s) Document(s ) Ethanol 0 mg/dL Ethyl Alcohol [place] [Mass/volum Level Regional e] in [facility] ID Date Data Source [id number] 05/24/2018 03:35:00 PM [facility] [id number] [facility] Name Value Range Interpretation Description Data Sup porting Code Source(s) Document(s ) Basophils 0.01 0.00-0.3 Basophils # [place] [#/volume] K/uL 0 (Auto) Regional in Blood by [facility] count ID Date Data Source [id number] 05/24/2018 03:35:00 PM [facility] [id number] [facility] Name Value Range Interpretation Description Data Sup porting Code Source(s) Document(s ) Basophils/100 0.1 % Basophils (%) [place] leukocytes in (Auto) Regional Blood by Hospital Automated [facility] count ID Date Data Source [id number] 05/24/2018 03:35:00 PM [facility] [id number] [facility] Name Value Range Interpretation Description Data Sup porting Code Source(s) Document(s ) Eosinophils 0.03 0.00-0.5 Eosinophils # [place] [#/volume] in K/uL 0 (Auto) Regional Blood by Hospital Automated [facility] count ID Date Data Source [id number] 05/24/2018 03:35:00 PM [facility] [id number] [facility] Name Value Range Interpretation Description Data Sup porting Code Source(s) Document(s ) Eosinophils/10 0.4 % Eosinophils (%) [place] 0 leukocytes (Auto) Regional in Blood by [facility] Automated [facility] count ID Date Data Source [id number] 05/24/2018 03:35:00 PM [facility] of [id number] [facility] Name Value Range Interpretation Description Data Sup porting Code Source(s) Document(s ) Hematocrit 40.9 % 38.0-51.0 Hematocrit [place] [Volume Regional Fraction] of [facility] Blood by [facility] Automated count ID Date Data Source [id number] 05/24/2018 03:35:00 PM [facility] [id number] [facility] Name Value Range Interpretation Description Data Sup porting Code Source(s) Document(s ) Hemoglobin 13.2 13.5-17. Below low normal Hemoglobin [place] [Mass/volume] gm/dL 0 Regional in Blood [facility] ID Date Data Source [id number] 05/24/2018 03:35:00 PM [facility] [id number] [facility] Name Value Range Interpretation Description Data Sup porting Code Source(s) Document(s ) Immature 0.02 0.00-0.1 Immature [place] granulocytes K/uL 0 Granulocyte # Regional [#/volume] in (Auto) Hospital Blood [facility] ID Date Data Source [id number] 05/24/2018 03:35:00 PM [facility] of [id number] [facility] Name Value Range Interpretation Description Data Sup porting Code Source(s) Document(s ) Immature 0.2 % Immature [place] granulocytes Granulocyte % Regional [#/volume] in (Auto) [facility] Blood by [facility] Automated count ID Date Data Source [id number] 05/24/2018 03:35:00 PM [facility] [id number] [facility] Name Value Range Interpretation Description Data Sup porting Code Source(s) Document(s ) Lymphocytes 1.86 0.60-4.8 Lymphocytes # [place] [#/volume] in K/uL 0 (Auto) Regional Blood by [facility] Automated [facility] count ID Date Data Source [id number] 05/24/2018 03:35:00 PM [facility] [id number] [facility] Name Value Range Interpretation Description Data Sup porting Code Source(s) Document(s ) Lymphocytes/10 23.0 % Lymphocytes [place] 0 leukocytes (%) (Auto) Regional in Blood by [facility] Automated [facility] count ID Date Data Source [id number] 05/24/2018 03:35:00 PM [facility] [id number] [facility] Name Value Range Interpretation Description Data Sup porting Code Source(s) Document(s ) Erythrocyte 27.4 pg 26.0-34. Mean [place] mean 0 Corpuscular Regional corpuscular Hemoglobin [facility] [Entitic mass] by Automated count ID Date Data Source [id number] 05/24/2018 03:35:00 PM [facility] [id number] [facility] Name Value Range Interpretation Description Data Sup porting Code Source(s) Document(s ) Erythrocyte mean 32.3 32.0-36. Mean [place] corpuscular gm/dL 0 Corpuscular Regional hemoglobin Hemoglobin [facility] [Mass/volume] by Automated count ID Date Data Source [id number] 05/24/2018 03:35:00 PM [facility] [id number] [facility] Name Value Range Interpretation Description Data Sup porting Code Source(s) Document(s ) Erythrocyte 84.9 fL 80.0-98. Mean [place] mean 0 Corpuscular Regional corpuscular Volume Hospital of counts include [facility] beds at [facility] [Entitic volume] by Automated count ID Date Data Source [id number] 05/24/2018 03:35:00 PM [facility] [id number] [facility] Name Value Range Interpretation Description Data Sup porting Code Source(s) Document(s ) Platelet mean 9.6 fL 8.5-13.0 Mean Platelet [place] volume Volume Regional [Entitic Hospital of volume] in [facility] Blood by Automated count ID Date Data Source [id number] 05/24/2018 03:35:00 PM [facility] [id number] [facility] Name Value Range Interpretation Description Data Sup porting Code Source(s) Document(s ) Monocytes 0.62 0.00-1.1 Monocytes # [place] [#/volume] K/uL 0 (Auto) Regional in Blood by Hospital Automated [facility] count ID Date Data Source [id number] 05/24/2018 03:35:00 PM [facility] [id number] [facility] Name Value Range Interpretation Description Data Sup porting Code Source(s) Document(s ) Monocytes/100 7.7 % Monocytes (%) [place] leukocytes in (Auto) Regional Blood by Hospital [facility] count ID Date Data Source [id number] 05/24/2018 03:35:00 PM [facility] [id number] [facility] Name Value Range Interpretation Description Data Sup porting Code Source(s) Document(s ) Neutrophils 5.53 2.00-8.4 Neutrophils # [place] [#/volume] in K/uL 0 (Auto) Regional Blood by Hospital Automated [facility] count ID Date Data Source [id number] 05/24/2018 03:35:00 PM [facility] [id number] [facility] Name Value Range Interpretation Description Data Sup porting Code Source(s) Document(s ) Neutrophils/10 68.6 % Neutrophils [place] 0 leukocytes (%) (Auto) Regional in Blood by Hospital Automated [facility] count ID Date Data Source [id number] 05/24/2018 03:35:00 PM [facility] [id number] [facility] Name Value Range Interpretation Description Data Sup porting Code Source(s) Document(s ) Nucleated 0.0 % 0.0-0.0 Nucleated RBC [place] erythrocytes/1 Relative Count Regional 00 leukocytes (auto) Hospital of [Ratio] in [facility] Blood by Automated count ID Date Data Source [id number] 05/24/2018 03:35:00 PM [facility] [id number] [facility] Name Value Range Interpretation Description Data Sup porting Code Source(s) Document(s ) Platelets 400 K/uL 150-400 Platelet Count [place] [#/volume] Regional in Blood by Hospital of Automated [facility] count ID Date Data Source [id number] 05/24/2018 03:35:00 PM [facility] [id number] [facility] Name Value Range Interpretation Description Data Sup porting Code Source(s) Document(s ) Erythrocyte 14.5 % 11.0-15. RDW [place] distribution 0 Coefficient of Regional width [Ratio] Variation Hospital of by Automated [facility] count ID Date Data Source [id number] 05/24/2018 03:35:00 PM [facility] of [id number] [facility] Name Value Range Interpretation Description Data Sup porting Code Source(s) Document(s ) Erythrocytes 4.82 4.7-6.0 Red Blood [place] [#/volume] in M/uL Count Regional Blood by Hospital of Automated count [facility] ID Date Data Source [id number] 05/24/2018 03:35:00 PM [facility] [id number] [facility] Name Value Range Interpretation Description Data Sup porting Code Source(s) Document(s ) Leukocytes 8.07 4.00-10. White Blood [place] [#/volume] in K/uL 50 Count Regional Blood by [facility] Automated [facility] count ID Date Data Source [id number] 05/24/2018 03:35:00 PM [facility] [id number] [facility] Name Value Range Interpretation Description Data Sup porting Code Source(s) Document(s ) Alanine 42 U/L 21-72 Alanine [place] aminotransferase Aminotransferase Region al [Enzymatic (ALT/SGPT) Hospital activity/volume] of [facility] in Serum or Plasma ID Date Data Source [id number] 05/24/2018 03:35:00 PM [facility] of [id number] [facility] Name Value Range Interpretation Description Data Sup porting Code Source(s) Document(s ) Albumin 4.7 g/dL 3.5-5.0 Albumin [place] [Mass/volum Regional e] in Serum Hospital of or Plasma [facility] ID Date Data Source [id number] 05/24/2018 03:35:00 PM [facility] of [id number] [facility] Name Value Range Interpretation Description Data Sup porting Code Source(s) Document(s ) Alkaline 60 U/L 38-126 Alkaline [place] phosphatase Phosphatase Regional [Enzymatic Hospital of activity/volum [facility] e] in Serum or Plasma ID Date Data Source [id number] 05/24/2018 03:35:00 PM [facility] [id number] [facility] Name Value Range Interpretation Description Data Sup porting Code Source(s) Document(s ) Aspartate 19 U/L 17-59 Aspartate [place] aminotransferase Amino Transf Regional [Enzymatic (AST/SGOT) Hospital of activity/volume] in [facility] Serum or Plasma ID Date Data Source [id number] 05/24/2018 03:35:00 PM [facility] of [id number] [facility] Name Value Range Interpretation Description Data Sup porting Code Source(s) Document(s ) Urea 15 mg/dL 9-20 Blood Urea [place] nitrogen Nitrogen Regional [Mass/volume Hospital of ] in Serum [facility] or Plasma ID Date Data Source [id number] 05/24/2018 03:35:00 PM [facility] [id number] [facility] Name Value Range Interpretation Description Data Sup porting Code Source(s) Document(s ) Calcium 9.8 mg/dL 8.4-10.2 Calcium Level [place] [Mass/volum Regional e] in Serum Hospital of or Plasma [facility] ID Date Data Source [id number] 05/24/2018 03:35:00 PM [facility] of [id number] [facility] Name Value Range Interpretation Description Data Sup porting Code Source(s) Document(s ) Carbon 29 mmol/L 22-30 Carbon Dioxide [place] dioxide, Level Regional total Hospital of [Moles/vol [facility] ume] in Serum or Plasma ID Date Data Source [id number] 05/24/2018 03:35:00 PM [facility] of [id number] [facility] Name Value Range Interpretation Description Data Sup porting Code Source(s) Document(s ) Chloride 104 98-107 Chloride Level [place] [Moles/volum mmol/L Regional e] in [facility] or Plasma [facility] ID Date Data Source [id number] 05/24/2018 03:35:00 PM [facility] of [id number] [facility] Name Value Range Interpretation Description Data Sup porting Code Source(s) Document(s ) Creatinine 0.77 0.66-1.2 Creatinine [place] [Mass/volume] mg/dL 5 Regional in Serum [facility] ID Date Data Source [id number] 05/24/2018 03:35:00 PM [facility] [id number] [facility] mL/min/1.73m2 Name Value Range Interpretation Code Description Data Asiya rce(s) Supporting Document(s ) Estimated GFR [place] (MDRD) [facility] ID Date Data Source [id number] 05/24/2018 03:35:00 PM [facility] of [id number] [facility] Name Value Range Interpretation Description Data Sup porting Code Source(s) Document(s ) Glucose 83 mg/dL 74-106 Fasting [place] [Mass/volum Glucose Regional e] in [facility] ID Date Data Source [id number] 05/24/2018 03:35:00 PM [facility] of [id number] [facility] Name Value Range Interpretation Description Data Sup porting Code Source(s) Document(s ) Potassium 4.0 3.5-5.1 Potassium [place] [Moles/volum mmol/L Level Regional e] in [facility] ID Date Data Source [id number] 05/24/2018 03:35:00 PM [facility] of [id number] [facility] Name Value Range Interpretation Description Data Sup porting Code Source(s) Document(s ) Sodium 142 137-145 Sodium Level [place] [Moles/vol mmol/L Regional ume] in [facility] or [facility] Plasma ID Date Data Source [id number] 05/24/2018 03:35:00 PM [facility] of [id number] [facility] Name Value Range Interpretation Description Data Sup porting Code Source(s) Document(s ) Bilirubin. 0.7 mg/dL 0.2-1.3 Total [place] total Bilirubin Regional [Mass/volu Hospital of ne] in [facility] Serum or Plasma ID Date Data Source [id number] 05/24/2018 03:35:00 PM [facility] of [id number] [facility] Name Value Range Interpretation Description Data Sup porting Code Source(s) Document(s ) Protein 7.6 g/dL 6.3-8.2 Total Protein [place] [Mass/volum Regional e] in Serum Hospital [facility] ID Date Data Source [id number] 05/24/2018 03:35:00 PM [facility] of [id number] [facility] Name Value Range Interpretation Description Data Sup porting Code Source(s) Document(s ) Ethanol 0 mg/dL Ethyl Alcohol [place] [Mass/volum Level Regional e] in Serum [facility] ID Date Data Source [id number] 05/24/2018 03:35:00 PM [facility] of [id number] [facility] Name Value Range Interpretation Description Data Sup porting Code Source(s) Document(s ) Basophils 0.01 0.00-0.3 Basophils # [place] [#/volume] K/uL 0 (Auto) Regional in Blood by Hospital [facility] count ID Date Data Source [id number] 05/24/2018 03:35:00 PM [facility] of [id number] [facility] Name Value Range Interpretation Description Data Sup porting Code Source(s) Document(s ) Basophils/100 0.1 % Basophils (%) [place] leukocytes in (Auto) Regional Blood by Hospital Automated [facility] count ID Date Data Source [id number] 05/24/2018 03:35:00 PM [facility] of [id number] [facility] Name Value Range Interpretation Description Data Sup porting Code Source(s) Document(s ) Eosinophils 0.03 0.00-0.5 Eosinophils # [place] [#/volume] in K/uL 0 (Auto) Regional Blood by Hospital Automated [facility] count ID Date Data Source [id number] 05/24/2018 03:35:00 PM [facility] of [id number] [facility] Name Value Range Interpretation Description Data Sup porting Code Source(s) Document(s ) Eosinophils/10 0.4 % Eosinophils (%) [place] 0 leukocytes (Auto) Regional in Blood by [facility] Automated [facility] count ID Date Data Source [id number] 05/24/2018 03:35:00 PM [facility] of [id number] [facility] Name Value Range Interpretation Description Data Sup porting Code Source(s) Document(s ) Hematocrit 40.9 % 38.0-51.0 Hematocrit [facility] [Volume Regional Fraction] of [facility] Blood by [facility] Automated count ID Date Data Source [id number] 05/24/2018 03:35:00 PM [facility] of [id number] [facility] Name Value Range Interpretation Description Data Sup porting Code Source(s) Document(s ) Hemoglobin 13.2 13.5-17. Below low normal Hemoglobin [place] [Mass/volume] gm/dL 0 Regional in Blood [facility] ID Date Data Source [id number] 05/24/2018 03:35:00 PM [facility] of [id number] [facility] Name Value Range Interpretation Description Data Sup porting Code Source(s) Document(s ) Immature 0.02 0.00-0.1 Immature [place] granulocytes K/uL 0 Granulocyte # Regional [#/volume] in (Auto) Hospital Blood [facility] ID Date Data Source [id number] 05/24/2018 03:35:00 PM [facility] of [id number] [facility] Name Value Range Interpretation Description Data Sup porting Code Source(s) Document(s ) Immature 0.2 % Immature [place] granulocytes Granulocyte % Regional [#/volume] in (Auto) Hospital of Blood by [facility] Automated count ID Date Data Source [id number] 05/24/2018 03:35:00 PM [facility] of [id number] [facility] Name Value Range Interpretation Description Data Sup porting Code Source(s) Document(s ) Lymphocytes 1.86 0.60-4.8 Lymphocytes # [place] [#/volume] in K/uL 0 (Auto) Regional Blood by Hospital Automated [facility] count ID Date Data Source [id number] 05/24/2018 03:35:00 PM [facility] of [id number] [facility] Name Value Range Interpretation Description Data Sup porting Code Source(s) Document(s ) Lymphocytes/10 23.0 % Lymphocytes [place] 0 leukocytes (%) (Auto) Regional in Blood by Hospital Automated [facility] count ID Date Data Source [id number] 05/24/2018 03:35:00 PM [facility] of [id number] [facility] Name Value Range Interpretation Description Data Sup porting Code Source(s) Document(s ) Erythrocyte 27.4 pg 26.0-34. Mean [place] mean 0 Corpuscular Regional corpuscular Hemoglobin [facility] WM [Entitic mass] by Automated count ID Date Data Source [id number] 05/24/2018 03:35:00 PM [facility] of [id number] C Name Value Range Interpretation Description Data Sup porting Code Source(s) Document(s ) Erythrocyte mean 32.3 32.0-36. Mean [place] corpuscular gm/dL 0 Corpuscular Regional hemoglobin Hemoglobin Hospital of concentration Concent [facility] [Mass/volume] by Automated count ID Date Data Source [id number] 05/24/2018 03:35:00 PM [facility] of [id number] [facility] Name Value Range Interpretation Description Data Sup porting Code Source(s) Document(s ) Erythrocyte 84.9 fL 80.0-98. Mean [place] mean 0 Corpuscular [facility] corpuscular Volume [facility] [Entitic volume] by Automated count ID Date Data Source [id number] 05/24/2018 03:35:00 PM [facility] of [id number] [facility] Name Value Range Interpretation Description Data Sup porting Code Source(s) Document(s ) Platelet mean 9.6 fL 8.5-13.0 Mean Platelet [place] volume Volume Regional [Entitic Hospital of volume] in C Blood by Automated count ID Date Data Source [id number] 05/24/2018 03:35:00 PM [facility] of [id number] [facility] Name Value Range Interpretation Description Data Sup porting Code Source(s) Document(s ) Monocytes 0.62 0.00-1.1 Monocytes # [place] [#/volume] K/uL 0 (Auto) Regional in Blood by Hospital Automated [facility] count ID Date Data Source [id number] 05/24/2018 03:35:00 PM [facility] of [id number] [facility] Name Value Range Interpretation Description Data Sup porting Code Source(s) Document(s ) Monocytes/100 7.7 % Monocytes (%) [place] leukocytes in (Auto) Regional Blood by Hospital Automated [facility] count ID Date Data Source [id number] 05/24/2018 03:35:00 PM [facility] of [id number] [facility] Name Value Range Interpretation Description Data Sup porting Code Source(s) Document(s ) Neutrophils 5.53 2.00-8.4 Neutrophils # [place] [#/volume] in K/uL 0 (Auto) Regional Blood by Hospital Automated [facility] count ID Date Data Source [id number] 05/24/2018 03:35:00 PM [facility] of [id number] [facility] Name Value Range Interpretation Description Data Sup porting Code Source(s) Document(s ) Neutrophils/10 68.6 % Neutrophils [place] 0 leukocytes (%) (Auto) Regional in Blood by Hospital of Automated [facility] count ID Date Data Source [id number] 05/24/2018 03:35:00 PM [facility] of [id number] [facility] Name Value Range Interpretation Description Data Sup porting Code Source(s) Document(s ) Nucleated 0.0 % 0.0-0.0 Nucleated RBC [place] erythrocytes/1 Relative Count Regional 00 leukocytes (auto) Hospital of [Ratio] in [facility] Blood by Automated count ID Date Data Source [id number] 05/24/2018 03:35:00 PM [facility] of [id number] [facility] Name Value Range Interpretation Description Data Sup porting Code Source(s) Document(s ) Platelets 400 K/uL 150-400 Platelet Count [place] [#/volume] Regional in Blood by Hospital Automated [facility] count ID Date Data Source [id number] 05/24/2018 03:35:00 PM [facility] of [id number] [facility] Name Value Range Interpretation Description Data Sup porting Code Source(s) Document(s ) Erythrocyte 14.5 % 11.0-15. RDW [place] distribution 0 Coefficient of Regional width [Ratio] Variation Hospital of by Automated [facility] count ID Date Data Source [id number] 05/24/2018 03:35:00 PM [facility] of [id number] [facility] Name Value Range Interpretation Description Data Sup porting Code Source(s) Document(s ) Erythrocytes 4.82 4.7-6.0 Red Blood [place] [#/volume] in M/uL Count Regional Blood by Hospital of Automated count [facility] ID Date Data Source [id number] 05/24/2018 03:35:00 PM [facility] of [id number] [facility] Name Value Range Interpretation Description Data Sup porting Code Source(s) Document(s ) Leukocytes 8.07 4.00-10. White Blood [place] [#/volume] in K/uL 50 Count Regional Blood by Hospital of Automated [facility] count ID Date Data Source [id number] 05/24/2018 03:35:00 PM [facility] of [id number] [facility] Name Value Range Interpretation Description Data Sup porting Code Source(s) Document(s ) Alanine 42 U/L 21-72 Alanine [place] aminotransferase Aminotransferase Region al [Enzymatic (ALT/SGPT) Hospital activity/volume] of [facility] in Serum or Plasma ID Date Data Source [id number] 05/24/2018 03:35:00 PM [facility] of [id number] [facility] Name Value Range Interpretation Description Data Sup porting Code Source(s) Document(s ) Albumin 4.7 g/dL 3.5-5.0 Albumin [place] [Mass/volum Regional e] in Serum Hospital of or Plasma [facility] ID Date Data Source [id number] 05/24/2018 03:35:00 PM [facility] of [id number] [facility] Name Value Range Interpretation Description Data Sup porting Code Source(s) Document(s ) Alkaline 60 U/L 38-126 Alkaline [place] phosphatase Phosphatase Regional [Enzymatic Hospital of activity/volum C e] in Serum or Plasma ID Date Data Source [id number] 05/24/2018 03:35:00 PM [facility] of [id number] [facility] Name Value Range Interpretation Description Data Sup porting Code Source(s) Document(s ) Aspartate 19 U/L 17-59 Aspartate [place] aminotransferase Amino Transf Regional [Enzymatic (AST/SGOT) Hospital of activity/volume] in [facility] Serum or Plasma ID Date Data Source [id number] 05/24/2018 03:35:00 PM [facility] of [id number] [facility] Name Value Range Interpretation Description Data Sup porting Code Source(s) Document(s ) Urea 15 mg/dL 9-20 Blood Urea [place] nitrogen Nitrogen Regional [Mass/volume Hospital of ] in Serum [facility] or Plasma ID Date Data Source [id number] 05/24/2018 03:35:00 PM [facility] of [id number] [facility] Name Value Range Interpretation Description Data Sup porting Code Source(s) Document(s ) Calcium 9.8 mg/dL 8.4-10.2 Calcium Level [place] [Mass/volum Regional e] in [facility] or [facility] ID Date Data Source [id number] 05/24/2018 03:35:00 PM [facility] of [id number] [facility] Name Value Range Interpretation Description Data Sup porting Code Source(s) Document(s ) Carbon 29 mmol/L 22-30 Carbon Dioxide [place] dioxide, Level Regional total Hospital of [Moles/vol [facility] ume] in Serum or Plasma ID Date Data Source [id number] 05/24/2018 03:35:00 PM [facility] of [id number] [facility] Name Value Range Interpretation Description Data Sup porting Code Source(s) Document(s ) Chloride 104 98-107 Chloride Level [place] [Moles/volum mmol/L Regional e] in [facility] ID Date Data Source [id number] 05/24/2018 03:35:00 PM [facility] of [id number] [facility] Name Value Range Interpretation Description Data Sup porting Code Source(s) Document(s ) Creatinine 0.77 0.66-1.2 Creatinine [place] [Mass/volume] mg/dL 5 Regional in Serum or [employer] [facility] [employer] [facility] Plasma [facility] ID Date Data Source [id number] 05/24/2018 03:35:00 PM [facility] of [id number] [facility] mL/min/1.73m2 Name Value Range Interpretation Code Description Data Asiya rce(s) Supporting Document(s ) Estimated GFR [place] (MDRD) [facility] ID Date Data Source [id number] 05/24/2018 03:35:00 PM [facility] of [id number] [facility] Name Value Range Interpretation Description Data Sup porting Code Source(s) Document(s ) Glucose 83 mg/dL 74-106 Fasting [place] [Mass/volum Glucose Regional e] in Serum Hospital [facility] ID Date Data Source [id number] 05/24/2018 03:35:00 PM [facility] of [id number] [facility] Name Value Range Interpretation Description Data Sup porting Code Source(s) Document(s ) Potassium 4.0 3.5-5.1 Potassium [place] [Moles/volum mmol/L Level Regional e] in [facility] ID Date Data Source [id number] 05/24/2018 03:35:00 PM [facility] of [id number] [facility] Name Value Range Interpretation Description Data Sup porting Code Source(s) Document(s ) Sodium 142 137-145 Sodium Level [place] [Moles/vol mmol/L Regional ume] in [facility] or [facility] Plasma ID Date Data Source [id number] 05/24/2018 03:35:00 PM [facility] of [id number] [facility] Name Value Range Interpretation Description Data Sup porting Code Source(s) Document(s ) Bilirubin. 0.7 mg/dL 0.2-1.3 Total [place] total Bilirubin Regional [Mass/volu Hospital of ne] in [facility] Serum or Plasma ID Date Data Source [id number] 05/24/2018 03:35:00 PM [facility] of [id number] [facility] Name Value Range Interpretation Description Data Sup porting Code Source(s) Document(s ) Protein 7.6 g/dL 6.3-8.2 Total Protein [place] [Mass/volum Regional e] in [facility] ID Date Data Source [id number] 05/24/2018 03:35:00 PM [facility] of [id number] [facility] Name Value Range Interpretation Description Data Sup porting Code Source(s) Document(s ) Ethanol 0 mg/dL Ethyl Alcohol [place] [Mass/volum Level Regional e] in Serum Hospital of or Plasma [facility] ID Date Data Source [id number] 05/24/2018 01:55:00 PM [facility] of [id number] [facility] This drug of abuse test provides only a preliminary analytical test result. A more specific alternate chemical method must be used to obtain a confirmed analytical result. GC/MS or HPLC is the preferred confirmatory method. Clinical considera tion and professional judgement should be applied to any drug of abuse test result, particularly when preliminary results only are obtained. This test cannot be used for the workplace or for legal purposes. UDS cutoff values are: Amphetamines 1000 ng/mL Barbiturates 200 ng/mL Benzodiazepines 200 ng/mL Cocaine 300 ng/mL Methadone 300 ng/mL Opiates (Morphine) 300 ng/mL Oxycodone 100 ng/mL Phencyclidine 25 ng/mL THC Cannabinoid Metabolite(s) 50 ng/mL Name Value Range Interpretation Description Data Sup porting Code Source(s) Document(s ) Drug screen Drugs of Abuse [place] comment Note Regional [Interpretat [facility]] in [facility] Urine ID Date Data Source [id number] 05/24/2018 01:55:00 PM [facility] of [id number] [facility] Name Value Range Interpretation Description Data Sup porting Code Source(s) Document(s ) Amphetamines Urine [place] [Presence] in Amphetamines Regional Urine by Screen Screen [facility] >1000 [facility] ng/mL ID Date Data Source [id number] 05/24/2018 01:55:00 PM [facility] of [id number] [facility] Name Value Range Interpretation Description Data Sup porting Code Source(s) Document(s ) Barbiturates Urine [place] [Presence] in Barbiturates [facility] Urine by Screen Screen Hospital of method >200 [facility] ng/mL ID Date Data Source [id number] 05/24/2018 01:55:00 PM [facility] of [id number] [facility] A qualitative positive BENZODIAZEPINE re sult indicates the presence of a benzodiazepine at a concentration of 200 ng/mL or greater. Name Value Range Interpretation Description Data Sup porting Code Source(s) Document(s ) Benzodiazepines Urine [place] [Presence] in Benzodiazepines [facility] Urine by Screen Screen Hospital of method >200 ng/mL [facility] ID Date Data Source [id number] 05/24/2018 01:55:00 PM [facility] of [id number] [facility] Name Value Range Interpretation Description Data Sup porting Code Source(s) Document(s ) Benzoylecgonine Urine Cocaine [place] [Presence] in Screen [facility] Urine by Screen Hospital of method >300 ng/mL [facility] ID Date Data Source [id number] 05/24/2018 01:55:00 PM [facility] of [id number] [facility] Name Value Range Interpretation Description Data Sup porting Code Source(s) Document(s ) Tetrahydrocannabinol Urine [place] [Presence] in Urine by Marijuana Regiona l Screen method >50 (THC) Screen Hospital ng/mL of [facility] ID Date Data Source [id number] 05/24/2018 01:55:00 PM [facility] of [id number] [facility] A qualitative positive METHADONE result indicates the presence of methadone, methadol or RADHA at a concentration of 300 ng/mL or greater. Name Value Range Interpretation Description Data Sup porting Code Source(s) Document(s ) Methadone Urine Methadone [place] [Presence] in Metabolites [facility] Urine by Screen Hospital of Screen method [facility] >300 ng/mL ID Date Data Source [id number] 05/24/2018 01:55:00 PM [facility] of [id number] [facility] Name Value Range Interpretation Description Data Sup porting Code Source(s) Document(s ) Opiates Urine Opiates [place] [Presence] Screen Regional in Urine by Hospital of Screen [facility] method ID Date Data Source [id number] 05/24/2018 01:55:00 PM [facility] [id number] [facility] Name Value Range Interpretation Description Data Sup porting Code Source(s) Document(s ) Oxycodone Urine Oxycodone [place] [Presence] in Screen [facility] Urine [facility] ID Date Data Source [id number] 05/24/2018 01:55:00 PM [facility] [id number] [facility] Name Value Range Interpretation Description Data Sup porting Code Source(s) Document(s ) Phencyclidine Urine [place] [Presence] in Phencyclidine Regional Urine by [facility] >25 ng/mL [facility] ID Date Data Source [id number] 05/24/2018 01:55:00 PM [facility] of [id number] [facility] This drug of abuse test provides only a preliminary analytical test result. A more specific alternate chemical method must be used to obtain a confirmed analytical result. GC/MS or HPLC is the preferred confirmatory method. Clinical considera tion and professional judgement should be applied to any drug of abuse test result, particularly when preliminary results only are obtained. This test cannot be used for the workplace or for legal purposes. UDS cutoff values are: Amphetamines 1000 ng/mL Barbiturates 200 ng/mL Benzodiazepines 200 ng/mL Cocaine 300 ng/mL Methadone 300 ng/mL Opiates (Morphine) 300 ng/mL Oxycodone 100 ng/mL Phencyclidine 25 ng/mL THC Cannabinoid Metabolite(s) 50 ng/mL Name Value Range Interpretation Description Data Sup porting Code Source(s) Document(s ) Drug screen Drugs of Abuse [place] comment Note Regional [Interpretat [facility]] in [facility] Urine ID Date Data Source [id number] 05/24/2018 01:55:00 PM [facility] [id number] [facility] Name Value Range Interpretation Description Data Sup porting Code Source(s) Document(s ) Amphetamines Urine [place] [Presence] in Amphetamines [facility] Urine by Screen Screen Hospital of method >1000 [facility] ng/mL ID Date Data Source [id number] 05/24/2018 01:55:00 PM [facility] of [id number] [facility] Name Value Range Interpretation Description Data Sup porting Code Source(s) Document(s ) Barbiturates Urine [place] [Presence] in Barbiturates [facility] Urine by Screen Screen Hospital of method >200 [facility] ng/mL ID Date Data Source [id number] 05/24/2018 01:55:00 PM [facility] [id number] [facility] A qualitative positive BENZODIAZEPINE re sult indicates the presence of a benzodiazepine at a concentration of 200 ng/mL or greater. Name Value Range Interpretation Description Data Sup porting Code Source(s) Document(s ) Benzodiazepines Urine [place] [Presence] in Benzodiazepines [facility] Urine by Screen Screen Hospital of method >200 ng/mL [facility] ID Date Data Source [id number] 05/24/2018 01:55:00 PM [facility] of [id number] [facility] Name Value Range Interpretation Description Data Sup porting Code Source(s) Document(s ) Benzoylecgonine Urine Cocaine [place] [Presence] in Screen [facility] Urine by Screen Hospital of method >300 ng/mL [facility] ID Date Data Source [id number] 05/24/2018 01:55:00 PM [facility] of [id number] [facility] Name Value Range Interpretation Description Data Sup porting Code Source(s) Document(s ) Tetrahydrocannabinol Urine [place] [Presence] in Urine by Marijuana Regiona l Screen method >50 (THC) Screen [facility] ng/mL of [facility] ID Date Data Source [id number] 05/24/2018 01:55:00 PM [facility] of [id number] [facility] A qualitative positive METHADONE result indicates the presence of methadone, methadol or RADHA at a concentration of 300 ng/mL or greater. Name Value Range Interpretation Description Data Sup porting Code Source(s) Document(s ) Methadone Urine Methadone [place] [Presence] in Metabolites Regional Urine by [facility] >300 ng/mL ID Date Data Source [id number] 05/24/2018 01:55:00 PM [facility] [id number] [facility] Name Value Range Interpretation Description Data Sup porting Code Source(s) Document(s ) Opiates Urine Opiates [place] [Presence] Screen Regional in Urine by Hospital of Screen [facility] method ID Date Data Source [id number] 05/24/2018 01:55:00 PM [facility] of [id number] [facility] Name Value Range Interpretation Description Data Sup porting Code Source(s) Document(s ) Oxycodone Urine Oxycodone [place] [Presence] in Screen [facility] Urine Hospital of [facility] ID Date Data Source [id number] 05/24/2018 01:55:00 PM [facility] of [id number] [facility] Name Value Range Interpretation Description Data Sup porting Code Source(s) Document(s ) Phencyclidine Urine [place] [Presence] in Phencyclidine [facility] Urine by Screen [facility] >25 ng/mL [facility] ID Date Data Source [id number] 05/24/2018 01:55:00 PM [facility] of [id number] [facility] This drug of abuse test provides only a preliminary analytical test result. A more specific alternate chemical method must be used to obtain a confirmed analytical result. GC/MS or HPLC is the preferred confirmatory method. Clinical considera tion and professional judgement should be applied to any drug of abuse test result, particularly when preliminary results only are obtained. This test cannot be used for the workplace or for legal purposes. UDS cutoff values are: Amphetamines 1000 ng/mL Barbiturates 200 ng/mL Benzodiazepines 200 ng/mL Cocaine 300 ng/mL Methadone 300 ng/mL Opiates (Morphine) 300 ng/mL Oxycodone 100 ng/mL Phencyclidine 25 ng/mL THC Cannabinoid Metabolite(s) 50 ng/mL Name Value Range Interpretation Description Data Sup porting Code Source(s) Document(s ) Drug screen Drugs of Abuse [place] comment Note Regional [[facility]] in [facility] Urine ID Date Data Source [id number] 05/24/2018 01:55:00 PM [facility] of [id number] [facility] Name Value Range Interpretation Description Data Sup porting Code Source(s) Document(s ) Amphetamines Urine [place] [Presence] in Amphetamines [facility] Urine by [facility] of method >1000 [facility] ng/mL ID Date Data Source [id number] 05/24/2018 01:55:00 PM [facility] of [id number] [facility] Name Value Range Interpretation Description Data Sup porting Code Source(s) Document(s ) Barbiturates Urine [place] [Presence] in Barbiturates [facility] Urine by Screen [facility] of method >200 [facility] ng/mL ID Date Data Source [id number] 05/24/2018 01:55:00 PM [facility] of [id number] [facility] A qualitative positive BENZODIAZEPINE re sult indicates the presence of a benzodiazepine at a concentration of 200 ng/mL or greater. Name Value Range Interpretation Description Data Sup porting Code Source(s) Document(s ) Benzodiazepines Urine [place] [Presence] in Benzodiazepines Regional Urine by Screen [facility] of method >200 ng/mL [facility] ID Date Data Source [id number] 05/24/2018 01:55:00 PM [facility] of [id number] [facility] Name Value Range Interpretation Description Data Sup porting Code Source(s) Document(s ) Benzoylecgonine Urine Cocaine [place] [Presence] in Screen [facility] Urine by [facility] of method >300 ng/mL [facility] ID Date Data Source [id number] 05/24/2018 01:55:00 PM [facility] of [id number] [facility] Name Value Range Interpretation Description Data Sup porting Code Source(s) Document(s ) Tetrahydrocannabinol Urine [place] [Presence] in Urine by Marijuana Regiona l Screen method >50 (THC) [facility] ng/mL of [facility] ID Date Data Source [id number] 05/24/2018 01:55:00 PM [facility] of [id number] [facility] A qualitative positive METHADONE result indicates the presence of methadone, methadol or RADHA at a concentration of 300 ng/mL or greater. Name Value Range Interpretation Description Data Sup porting Code Source(s) Document(s ) Methadone Urine Methadone [place] [Presence] in Metabolites [facility] Urine by [facility] of Screen method [facility] >300 ng/mL ID Date Data Source [id number] 05/24/2018 01:55:00 PM [facility] of [id number] [facility] Name Value Range Interpretation Description Data Sup porting Code Source(s) Document(s ) Opiates Urine Opiates [place] [Presence] Screen [facility] in Urine by Hospital of Screen [facility] method ID Date Data Source [id number] 05/24/2018 01:55:00 PM [facility] of [id number] [facility] Name Value Range Interpretation Description Data Sup porting Code Source(s) Document(s ) Oxycodone Urine Oxycodone [place] [Presence] in Screen [facility] Urine [facility] ID Date Data Source [id number] 05/24/2018 01:55:00 PM [facility] of [id number] [facility] Name Value Range Interpretation Description Data Sup porting Code Source(s) Document(s ) Phencyclidine Urine [place] [Presence] in Phencyclidine [facility] Urine by Screen [facility] of method >25 ng/mL [facility] ID Date Data Source [id number] 05/24/2018 01:55:00 PM [facility] of [id number] [facility] This drug of abuse test provides only a preliminary analytical test result. A more specific alternate chemical method must be used to obtain a confirmed analytical result. GC/MS or HPLC is the preferred confirmatory method. Clinical considera tion and professional judgement should be applied to any drug of abuse test result, particularly when preliminary results only are obtained. This test cannot be used for the workplace or for legal purposes. UDS cutoff values are: Amphetamines 1000 ng/mL Barbiturates 200 ng/mL Benzodiazepines 200 ng/mL Cocaine 300 ng/mL Methadone 300 ng/mL Opiates (Morphine) 300 ng/mL Oxycodone 100 ng/mL Phencyclidine 25 ng/mL THC Cannabinoid Metabolite(s) 50 ng/mL Name Value Range Interpretation Description Data Sup porting Code Source(s) Document(s ) Drug screen Drugs of Abuse [place] comment Note Regional [[facility]] in [facility] Urine ID Date Data Source [id number] 05/24/2018 01:55:00 PM [facility] of [id number] [facility] Name Value Range Interpretation Description Data Sup porting Code Source(s) Document(s ) Amphetamines Urine [place] [Presence] in Amphetamines [facility] Urine by Screen [facility] of method >1000 [facility] ng/mL ID Date Data Source [id number] 05/24/2018 01:55:00 PM [facility] of [id number] [facility] Name Value Range Interpretation Description Data Sup porting Code Source(s) Document(s ) Barbiturates Urine [place] [Presence] in Barbiturates [facility] Urine by [facility] of method >200 [facility] ng/mL ID Date Data Source [id number] 05/24/2018 01:55:00 PM [facility] of [id number] [facility] A qualitative positive BENZODIAZEPINE re sult indicates the presence of a benzodiazepine at a concentration of 200 ng/mL or greater. Name Value Range Interpretation Description Data Sup porting Code Source(s) Document(s ) Benzodiazepines Urine [place] [Presence] in Benzodiazepines [facility] Urine by Screen [facility] of method >200 ng/mL [facility] ID Date Data Source [id number] 05/24/2018 01:55:00 PM [facility] of [id number] [facility] Name Value Range Interpretation Description Data Sup porting Code Source(s) Document(s ) Benzoylecgonine Urine Cocaine [place] [Presence] in Screen [facility] Urine by [facility] of method >300 ng/mL [facility] ID Date Data Source [id number] 05/24/2018 01:55:00 PM [facility] of [id number] [facility] Name Value Range Interpretation Description Data Sup porting Code Source(s) Document(s ) Tetrahydrocannabinol Urine [place] [Presence] in Urine by Marijuana Regiona l Screen method >50 (THC) Screen [facility] ng/mL of [facility] ID Date Data Source [id number] 05/24/2018 01:55:00 PM [facility] [id number] [facility] A qualitative positive METHADONE result indicates the presence of methadone, methadol or RADHA at a concentration of 300 ng/mL or greater. Name Value Range Interpretation Description Data Sup porting Code Source(s) Document(s ) Methadone Urine Methadone [place] [Presence] in Metabolites Regional Urine by Screen [facility] of Screen method [facility] >300 ng/mL ID Date Data Source [id number] 05/24/2018 01:55:00 PM [facility] of [id number] [facility] Name Value Range Interpretation Description Data Sup porting Code Source(s) Document(s ) Opiates Urine Opiates [place] [Presence] Screen [facility] in Urine by Hospital of Screen [facility] method ID Date Data Source [id number] 05/24/2018 01:55:00 PM [facility] of [id number] [facility] Name Value Range Interpretation Description Data Sup porting Code Source(s) Document(s ) Oxycodone Urine Oxycodone [place] [Presence] in Screen [facility] Urine [facility] C ID Date Data Source [id number] 05/24/2018 01:55:00 PM EST [facility] [id number] [facility] Name Value Range Interpretation Description Data Sup porting Code Source(s) Document(s ) Phencyclidine Urine [place] [Presence] in Phencyclidine [facility] Urine by Screen Screen [facility] of method >25 ng/mL [facility] Procedure Social History Code Duration Value Status Description Data Source(s ) Smoking Unknown if ever completed Unknown if ever [facility] smoked smoked [facility] C Smoking Unknown if ever completed Unknown if ever [facility] smoked smoked [facility] Smoking Unknown if ever completed Unknown if ever [facility] smoked smoked [facility] Smoking Unknown if ever completed Unknown if ever [facility] smoked smoked [facility] Vital Signs ID Date Data Source [id number] Name Value Range Interpretation Code Description Data Source(s) Diastolic blood 77 mm[Hg] 40-100 77 mm[Hg] [facility] Systolic blood 137 mm[Hg] 90-160 137 mm[Hg] [facility] Respiratory rate 18 /min 12-24 18 /min [facility] Heart rate 80 /min 60-100 80 /min [facility] Body temperature 98.8 [degF] 97.6 F-99.6 98.8 [degF] [facility] Diastolic blood 77 mm[Hg] 40-100 77 mm[Hg] [facility] Systolic blood 137 mm[Hg] 90-160 137 mm[Hg] [facility] Respiratory rate 18 /min 12-24 18 /min [facility] Heart rate 80 /min 60-100 80 /min [facility] Body temperature 98.8 [degF] 97.6 F-99.6 98.8 [degF] [facility] Diastolic blood 77 mm[Hg] 40-100 77 mm[Hg] [facility] Systolic blood 137 mm[Hg] 90-160 137 mm[Hg] [facility] Respiratory rate 18 /min 12-24 18 /min [facility] Heart rate 80 /min 60-100 80 /min [facility] Body temperature 98.8 [degF] 97.6 F-99.6 98.8 [degF] [facility] Diastolic blood 77 mm[Hg] 40-100 77 mm[Hg] [facility] pressure [facility] Systolic blood 137 mm[Hg] 90-160 137 mm[Hg] [facility] pressure [facility] Respiratory rate 18 /min 12-24 18 /min [facility] Heart rate 80 /min 60-100 80 /min [facility] Body temperature 98.8 [degF] 97.6 F-99.6 98.8 [degF] [facility] Deprecated Oxygen 100 % 93-100 100 % [place] on saturation in [facility] Capillary blood Hospital of by Oximetry [facility] Deprecated Oxygen 100 % 93-100 100 % [place] on saturation in [facility] Capillary blood Hospital of by Oximetry [facility] Deprecated Oxygen 100 % 93-100 100 % [place] on saturation in [facility] Capillary blood Hospital of by Oximetry [facility] Deprecated Oxygen 100 % 93-100 100 % [place] on saturation in [facility] Capillary blood Hospital of by Oximetry [facility] Body weight 79.37 kg 79.37 kg [facility] Body height 67 [in_i] 67 [in_i] [facility] Body weight 79.37 kg 79.37 kg [facility] Measured [facility] Body height 67 [in_i] 67 [in_i] [facility] Body weight 79.37 kg 79.37 kg [facility] Measured [facility] Body height 67 [in_i] 67 [in_i] [facility] Body weight 79.37 kg 79.37 kg [facility] Body height 67 [in_i] 67 [in_i] [facility] Body mass index [place] (BMI) [Ratio] [facility] Body mass index [place] (BMI) [Ratio] [facility] Body mass index [facility] (BMI) [Ratio] [facility] Body mass index [place] (BMI) [Ratio] [facility]
[2020-01-20 15:01] LABS: HEMATOCRIT 35.6 % (35.4-49); HEMOGLOBIN 11.9 GM/dL (11.7-16.9); MCH 28.2 pg (25.7-33.7); MCHC 33.3 g/dl (32.0-35.9); MEAN CELL VOLUME 84.7 fl (80-96); MEAN PLT VOLUME 8.8 fl (7.5-11.1); PLATELET COUNT 234 K/MM3 (134-434); RDW 14.3 % (11.9-15.9); WHITE BLOOD COUNT 6.6 K/mm3 (4.0-10.0)
[2020-01-20 15:14] LABS: ALBUMIN 3.8 g/dl (3.4-5.0); BLOOD UREA NITROGEN 11.6 mg/dL (7-18); CALCIUM 9.2 mg/dL (8.5-10.1); POTASSIUM 4.3 mmol/L (3.5-5.1)
[2020-01-20 15:18] LABS: BILIRUBIN,TOTAL 0.3 mg/dL (0.2-1); CREATININE 0.8 mg/dL (0.55-1.3); TOT PROT 7.1 g/dl (6.4-8.2)
[2020-01-20] MEDS: THIAMINE HCL 100 MG TABLET (FP) PO SCH (21:30)
[2020-01-20] MEDS: MELATONIN 5 MG TABLETS PO SCH (21:30)
[2020-01-21] MEDS: hydrOXYzine PAMOATE 25 MG CAPSULE (FP) PO SCH ×5 (07:21→22:09)
[2020-01-21] MEDS ORDERED: METHADONE HCL 10 MG TABLET (FOR DETOX USE ONLY) ONE (09:25)
[2020-01-21] MEDS ORDERED: METHADONE HCL 5 MG TABLET (FOR DETOX USE ONLY) ONE (09:25)
[2020-01-21] MEDS ORDERED: METHADONE (DETOX) 20 MG, METHADONE (DETOX) 5 MG PO ONE (10:00)
[2020-01-21] MEDS: NICOTINE 14 MG/24 HOURS TOPICAL PATCH TD SCH (10:40)
[2020-01-21] MEDS: PRENATAL VITAMINS W/ FOLIC ACID TABLET (FP) PO SCH (10:41)
[2020-01-21] MEDS: diazePAM 5 MG TABLET PO PRN ×3 (12:00→22:10)
--- NOTE | 2020-01-21 12:52 | PN ---
S COWS - Scale Resting Pulse: 0= IA 80 or Below Sweatin= No chills or Flushing Restless Observation: 0= Sits Still Pupil Size: 1= Pupils >than Normal Bone or Joint Aches: 2= Severe Diffuse Aches Runny Nose/ Eye Tearin= Runny Nose/Eyes GI Upset > 30mins: 2= Nausea/Diarrhea Tremor Observation of Outstretched Hands: 2= Slight Tremor Visible Yawning Observation: 1= 1-2x During Session Anxiety or Irritability: 2=Irritable/Anxious Goose Flesh Skin: 0=Smooth Skin COWS Score: 12 S Progress Note (SOAP) Subjective: alert,irritable,anxious,interrupted sleep,tremor,pain in the body and back Objective: 01/21/20 17:00 Vital Signs Temperature 98 F 01/21/20 12:52 Pulse Rate 66 01/21/20 12:52 Respiratory Rate 18 01/21/20 12:52 Blood Pressure 114/70 01/21/20 12:52 O2 Sat by Pulse Oximetry (%) 97 01/21/20 12:52 Laboratory Last Values WBC 6.6 K/mm3 (4.0-10.0) 01/20/20 13:10 RBC 4.20 M/mm3 (4.00-5.60) 01/20/20 13:10 Hgb 11.9 GM/dL (11.7-16.9) 01/20/20 13:10 Hct 35.6 % (35.4-49) 01/20/20 13:10 MCV 84.7 fl (80-96) 01/20/20 13:10 MCH 28.2 pg (25.7-33.7) 01/20/20 13:10 MCHC 33.3 g/dl (32.0-35.9) 01/20/20 13:10 RDW 14.3 % (11.9-15.9) 01/20/20 13:10 Plt Count 234 K/MM3 (134-434) 01/20/20 13:10 MPV 8.8 fl (7.5-11.1) 01/20/20 13:10 Sodium 140 mmol/L (136-145) 01/20/20 13:10 Potassium 4.3 mmol/L (3.5-5.1) 01/20/20 13:10 Chloride 104 mmol/L (98-107) 01/20/20 13:10 Carbon Dioxide 32 mmol/L (21-32) 01/20/20 13:10 Anion Gap 4 MMOL/L (8-16) L 01/20/20 13:10 BUN 11.6 mg/dL (7-18) 01/20/20 13:10 Creatinine 0.8 mg/dL (0.55-1.3) 01/20/20 13:10 Est GFR (CKD-EPI)AfAm 142.89 01/20/20 13:10 Est GFR (CKD-EPI)NonAf 123.29 01/20/20 13:10 Random Glucose 120 mg/dL (74-106) H 01/20/20 13:10 Calcium 9.2 mg/dL (8.5-10.1) 01/20/20 13:10 Total Bilirubin 0.3 mg/dL (0.2-1) 01/20/20 13:10 AST 17 U/L (15-37) 01/20/20 13:10 ALT 23 U/L (13-61) 01/20/20 13:10 Alkaline Phosphatase 79 U/L (45-117) 01/20/20 13:10 Total Protein 7.1 g/dl (6.4-8.2) 01/20/20 13:10 Albumin 3.8 g/dl (3.4-5.0) 01/20/20 13:10 Syphilis Serology Non-reactive (NONREACTIVE) 01/20/20 13:10 COVID-19 ([facility]) Not detected (Not Detected) 01/20/20 13:10 Assessment: 01/21/20 17:00 withdrawal symptom Plan: continue detox methadone regimen,valium 10 mgs po q 4 hrs prn for severe withdrawal for 72 hrs,fluid,initial glucose 120,fasting glucose in am
[2020-01-21] MEDS: THIAMINE HCL 100 MG TABLET (FP) PO SCH (22:10)
[2020-01-21] MEDS: MELATONIN 5 MG TABLETS PO SCH (22:10)
[2020-01-22] MEDS: hydrOXYzine PAMOATE 25 MG CAPSULE (FP) PO SCH ×2 (06:42→10:41)
[2020-01-22 09:51] VITALS: BP 132/87; PULSE 72; TEMP 98.1
[2020-01-22] MEDS ORDERED: METHADONE HCL 10 MG TABLET (FOR DETOX USE ONLY) PO ONE (10:00)
--- NOTE | 2020-01-22 10:21 | PN ---
[facility] CIWA - CIWA Score Nausea/Vomitin-No Nausea/No Vomiting Muscle Tremors: 2 Anxiety: 2 Agitation: 3 Paroxysmal Sweats: No Perspiration Orientation: 0-Oriented Tacttile Disturbances: 1-Very Mild Itch/Numbness Auditory Disturbances: 0-None Visual Disturbances: 0-None Headache: 2-Mild CIWA-Ar Total Score: 10 S Progress Note (SOAP) Subjective: alert,irritable,anxious,interrupted sleep,pain in the body and back,tremor Objective: 01/22/20 15:30 Vital Signs Temperature 98.1 F 01/22/20 09:00 Pulse Rate 72 01/22/20 09:00 Respiratory Rate 18 01/22/20 09:00 Blood Pressure 132/87 01/22/20 09:00 O2 Sat by Pulse Oximetry (%) 100 01/21/20 20:34 Laboratory Last Values WBC 6.6 K/mm3 (4.0-10.0) 01/20/20 13:10 RBC 4.20 M/mm3 (4.00-5.60) 01/20/20 13:10 Hgb 11.9 GM/dL (11.7-16.9) 01/20/20 13:10 Hct 35.6 % (35.4-49) 01/20/20 13:10 MCV 84.7 fl (80-96) 01/20/20 13:10 MCH 28.2 pg (25.7-33.7) 01/20/20 13:10 MCHC 33.3 g/dl (32.0-35.9) 01/20/20 13:10 RDW 14.3 % (11.9-15.9) 01/20/20 13:10 Plt Count 234 K/MM3 (134-434) 01/20/20 13:10 MPV 8.8 fl (7.5-11.1) 01/20/20 13:10 Sodium 140 mmol/L (136-145) 01/20/20 13:10 Potassium 4.3 mmol/L (3.5-5.1) 01/20/20 13:10 Chloride 104 mmol/L (98-107) 01/20/20 13:10 Carbon Dioxide 32 mmol/L (21-32) 01/20/20 13:10 Anion Gap 4 MMOL/L (8-16) L 01/20/20 13:10 BUN 11.6 mg/dL (7-18) 01/20/20 13:10 Creatinine 0.8 mg/dL (0.55-1.3) 01/20/20 13:10 Est GFR (CKD-EPI)AfAm 142.89 01/20/20 13:10 Est GFR (CKD-EPI)NonAf 123.29 01/20/20 13:10 Random Glucose 120 mg/dL (74-106) H 01/20/20 13:10 Calcium 9.2 mg/dL (8.5-10.1) 01/20/20 13:10 Total Bilirubin 0.3 mg/dL (0.2-1) 01/20/20 13:10 AST 17 U/L (15-37) 01/20/20 13:10 ALT 23 U/L (13-61) 01/20/20 13:10 Alkaline Phosphatase 79 U/L (45-117) 01/20/20 13:10 Total Protein 7.1 g/dl (6.4-8.2) 01/20/20 13:10 Albumin 3.8 g/dl (3.4-5.0) 01/20/20 13:10 Syphilis Serology Non-reactive (NONREACTIVE) 01/20/20 13:10 COVID-19 (ELVIN) Not detected (Not Detected) 01/20/20 13:10 Assessment: 01/22/20 15:31 withdrawal symptom Plan: continue detox methadone regimen valium 10 mgs po q 4hrs prn for 72 hrs
--- NOTE | 2020-01-22 10:22 | DS ---
[facility] Detox Discharge Summary Admission Date: 01/20/20 Discharge Date: 01/22/20 - History Present History: Cannabis Dependence, Opioid Dependence Additional Comments: alert,oriented x 3 ambulation on the unit lung clear on auscultation bilaterally abdomen soft,no pain,no tenderness patient did not want to completed treatment,all attempts to convince patient to stay with no avail, riks of leaving the facility explained including ,patient understood,signed release against medical advice,advise to call 911 if not feeling well Pertinent Past History: nicotine dependence - Physical Exam Results Vital Signs: Vital Signs Temperature 98.1 F 01/22/20 09:00 Pulse Rate 72 01/22/20 09:00 Respiratory Rate 18 01/22/20 09:00 Blood Pressure 132/87 01/22/20 09:00 O2 Sat by Pulse Oximetry (%) 100 01/21/20 20:34 Pertinent Admission Physical Exam Findings: withdrawal signs and symptom Vital Signs Temperature 98.1 F 01/22/20 09:00 Pulse Rate 72 01/22/20 09:00 Respiratory Rate 18 01/22/20 09:00 Blood Pressure 132/87 01/22/20 09:00 O2 Sat by Pulse Oximetry (%) 100 01/21/20 20:34 Laboratory Last Values WBC 6.6 K/mm3 (4.0-10.0) 01/20/20 13:10 RBC 4.20 M/mm3 (4.00-5.60) 01/20/20 13:10 Hgb 11.9 GM/dL (11.7-16.9) 01/20/20 13:10 Hct 35.6 % (35.4-49) 01/20/20 13:10 MCV 84.7 fl (80-96) 01/20/20 13:10 MCH 28.2 pg (25.7-33.7) 01/20/20 13:10 MCHC 33.3 g/dl (32.0-35.9) 01/20/20 13:10 RDW 14.3 % (11.9-15.9) 01/20/20 13:10 Plt Count 234 K/MM3 (134-434) 01/20/20 13:10 MPV 8.8 fl (7.5-11.1) 01/20/20 13:10 Sodium 140 mmol/L (136-145) 01/20/20 13:10 Potassium 4.3 mmol/L (3.5-5.1) 01/20/20 13:10 Chloride 104 mmol/L (98-107) 01/20/20 13:10 Carbon Dioxide 32 mmol/L (21-32) 01/20/20 13:10 Anion Gap 4 MMOL/L (8-16) L 01/20/20 13:10 BUN 11.6 mg/dL (7-18) 01/20/20 13:10 Creatinine 0.8 mg/dL (0.55-1.3) 01/20/20 13:10 Est GFR (CKD-EPI)AfAm 142.89 01/20/20 13:10 Est GFR (CKD-EPI)NonAf 123.29 01/20/20 13:10 Random Glucose 120 mg/dL (74-106) H 01/20/20 13:10 Calcium 9.2 mg/dL (8.5-10.1) 01/20/20 13:10 Total Bilirubin 0.3 mg/dL (0.2-1) 01/20/20 13:10 AST 17 U/L (15-37) 01/20/20 13:10 ALT 23 U/L (13-61) 01/20/20 13:10 Alkaline Phosphatase 79 U/L (45-117) 01/20/20 13:10 Total Protein 7.1 g/dl (6.4-8.2) 01/20/20 13:10 Albumin 3.8 g/dl (3.4-5.0) 01/20/20 13:10 Syphilis Serology Non-reactive (NONREACTIVE) 01/20/20 13:10 COVID-19 ([facility]) Not detected (Not Detected) 01/20/20 13:10 - Medication Discharge Medications: Ambulatory Orders NK [No Known Home Medication] 09/30/19 - Diagnosis (1) Cannabis dependence, uncomplicated Status: Chronic (2) Nicotine dependence Status: Chronic Qualifiers: Nicotine product type: cigarettes Substance use status: uncomplicated Qualified Code(s): F17.210 - Nicotine dependence, cigarettes, uncomplicated (3) Opioid dependence with withdrawal Status: Chronic - AMA Did Patient Leave Against Medical Advice: Yes
[2020-01-22] MEDS: PRENATAL VITAMINS W/ FOLIC ACID TABLET (FP) PO SCH (10:41)
[2020-01-22] MEDS: NICOTINE 14 MG/24 HOURS TOPICAL PATCH TD SCH (10:41)
[2020-01-23] MEDS ORDERED: METHADONE (DETOX) 10 MG, METHADONE (DETOX) 5 MG PO ONE (10:00)
[2020-01-24] MEDS ORDERED: METHADONE HCL 10 MG TABLET (FOR DETOX USE ONLY) PO ONE (10:00)
[2020-01-25] MEDS ORDERED: METHADONE HCL 5 MG TABLET (FOR DETOX USE ONLY) PO ONE (06:00)
== END 2020-01-22 09:20 | disposition left against medical advice (07) | DRG 770 ==
LOC: YASAS 12:02 → Y3N 13:07
PROVIDERS: ADMIT Allergy & Immunology; ATTEND Allergy & Immunology
PROC: HZ2ZZZZ Detoxification Services for Substance Abuse Treatment (ICD-10-PCS; principal; 2020-01-20)
DX: F11.23 Opioid dependence with withdrawal (principal); F13.10 Sedative, hypnotic or anxiolytic abuse, uncomplicated; F12.20 Cannabis dependence, uncomplicated; F17.210 Nicotine dependence, cigarettes, uncomplicated; F32.9 Major depressive disorder, single episode, unspecified; Z59.0 Homelessness
CPT/HCPCS: 36415; 80053; 85027; 86780; U0003

== ENCOUNTER 2021-01-13 12:54 | Inpatient (IN) | payer OTHER ==
[2021-01-13] MEDS ORDERED: MAGNESIUM CITRATE 300 ML BOTTLE PO PRN (15:38)
[2021-01-13] MEDS ORDERED: MAGNESIUM HYDROX 2400MG/30ML ORAL SUSPENSION 30 ML CUP PO PRN (15:38)
[2021-01-13] MEDS ORDERED: ACETAMINOPHEN 325 MG TABLET (FP) PO PRN ×2 (15:38)
[2021-01-13] MEDS ORDERED: MAG HYDROX/AL HYDROX/SIMETH 30 ML UNIT-DOSE CUP PO PRN (15:38)
[2021-01-13] MEDS ORDERED: METHOCARBAMOL 500 MG TABLET PO PRN (15:38)
[2021-01-13] MEDS ORDERED: NICOTINE 10 MG CARTRIDGE (INHALER) IH PRN (15:38)
[2021-01-13] MEDS ORDERED: IBUPROFEN 400 MG TABLET (FP) PO PRN (15:38)
[2021-01-13] MEDS ORDERED: cloNIDine HCL 0.1 MG TABLET PO PRN (15:38)
[2021-01-13] MEDS ORDERED: BISMUTH SUBSALICYLATE 524 MG/30 ML PO PRN (15:38)
[2021-01-13] MEDS ORDERED: methaDONE HCL 10 MG TABLET (FOR DETOX USE ONLY) PO ONE (15:38)
[2021-01-13] MEDS ORDERED: ONDANSETRON *ODT* 4 MG TABLET SL PRN (15:38)
[2021-01-13] MEDS ORDERED: MENTHOL/PHENOL 1 EACH UD MM PRN (15:38)
[2021-01-13 15:41] VITALS: BMI 28.3
[2021-01-13] MEDS ORDERED: methaDONE HCL 10 MG TABLET (FOR DETOX USE ONLY) ONE (16:41)
[2021-01-13] MEDS: PRENATAL VITAMINS W/ FOLIC ACID TABLET (FP) PO SCH (18:04)
[2021-01-13] MEDS: hydrOXYzine PAMOATE 25 MG CAPSULE (FP) PO SCH ×2 (18:04→22:06)
[2021-01-13] MEDS: clonazePAM 0.5 MG ODT TABLETS SL PRN (18:09)
[2021-01-13] MEDS ORDERED: THIAMINE HCL 100 MG TABLET (FP) PO SCH (22:00)
[2021-01-13] MEDS ORDERED: MELATONIN 5 MG TABLETS PO SCH (22:00)
[2021-01-14] MEDS: hydrOXYzine PAMOATE 25 MG CAPSULE (FP) PO SCH ×3 (06:56→14:01)
[2021-01-14] MEDS ORDERED: methaDONE HCL 10 MG TABLET (FOR DETOX USE ONLY) ONE (09:48)
[2021-01-14] MEDS ORDERED: COVID-19 VAC,AD26(JANSSEN)/PF 0.5 ML IM ONE (10:00)
[2021-01-14 10:08] LABS: HEMATOCRIT 33.7 % (35.4-49); HEMOGLOBIN 11.4 GM/dL (11.7-16.9); MCH 29.3 pg (25.7-33.7); MCHC 33.8 g/dl (32.0-35.9); MEAN CELL VOLUME 86.7 fl (80-96); MEAN PLT VOLUME 8.7 fl (7.5-11.1); PLATELET COUNT 226 10^3/uL (134-434); RBC 3.89 M/mm3 (4.00-5.60); RDW 14.8 % (11.9-15.9)
[2021-01-14 10:15] LABS: CALCIUM 8.6 mg/dL (8.5-10.1)
[2021-01-14 10:16] LABS: ALBUMIN 3.5 g/dl (3.4-5.0); BLOOD UREA NITROGEN 11.1 mg/dL (7-18)
[2021-01-14] MEDS: clonazePAM 0.5 MG ODT TABLETS SL PRN (10:16)
[2021-01-14] MEDS: PRENATAL VITAMINS W/ FOLIC ACID TABLET (FP) PO SCH (10:17)
[2021-01-14 10:19] LABS: CREATININE 0.8 mg/dL (0.55-1.3)
[2021-01-14 10:21] LABS: TOT PROT 6.5 g/dl (6.4-8.2)
[2021-01-14 10:29] LABS: BILIRUBIN,TOTAL 0.4 mg/dL (0.2-1)
[2021-01-14 14:15] VITALS: BP 126/75; PULSE 60; TEMP 96.4
[2021-01-15] MEDS ORDERED: methaDONE HCL 10 MG TABLET (FOR DETOX USE ONLY) PO ONE (10:00)
[2021-01-17] MEDS ORDERED: methaDONE HCL 10 MG TABLET (FOR DETOX USE ONLY) PO ONE (10:00)
== END 2021-01-14 15:31 | disposition left against medical advice (07) | DRG 770 ==
LOC: YASAS 12:54 → Y3N 16:34
PROVIDERS: ADMIT Allergy & Immunology; ATTEND Allergy & Immunology
PROC: HZ2ZZZZ Detoxification Services for Substance Abuse Treatment (ICD-10-PCS; principal; 2021-01-13)
DX: F11.23 Opioid dependence with withdrawal (principal); F12.20 Cannabis dependence, uncomplicated; F17.210 Nicotine dependence, cigarettes, uncomplicated; Z59.0 Homelessness
CPT/HCPCS: 0031A; 36415; 80053; 85027; 86780; 91303; C9803; U0003; U0005

== ENCOUNTER 2022-09-19 15:42 | Inpatient (IN) | payer OTHER ==
[2022-09-19 16:23] VITALS: BMI 30.7
[2022-09-19] MEDS ORDERED: BENZONATATE 200 MG CAPSULE PO PRN (19:03)
[2022-09-19] MEDS ORDERED: DICYCLOMINE HCL 10 MG CAPSULE PO PRN (19:03)
[2022-09-19] MEDS ORDERED: BISMUTH SUBSALICYLATE 524 MG/30 ML PO PRN (19:03)
[2022-09-19] MEDS ORDERED: NALOXONE HCL (KLOXXADO) 8 MG SPRAY NS PRN (19:03)
[2022-09-19] MEDS ORDERED: NICOTINE 10 MG CARTRIDGE (INHALER) IH PRN (19:03)
[2022-09-19] MEDS ORDERED: LOPERAMIDE HCL 2 MG CAPSULE PO PRN (19:03)
[2022-09-19] MEDS ORDERED: ACETAMINOPHEN 325 MG TABLET (FP) PO PRN (19:03)
[2022-09-19] MEDS ORDERED: MAG HYDROX/AL HYDROX/SIMETH 30 ML UNIT-DOSE CUP PO PRN (19:03)
[2022-09-19] MEDS ORDERED: BENZOCAINE/MENTHOL (CHLORASEPTIC ) LOZENGE MM PRN (19:03)
[2022-09-19] MEDS ORDERED: IBUPROFEN 400 MG TABLET (FP) PO PRN (19:03)
[2022-09-19] MEDS ORDERED: POLYETHYLENE GLYCOL (HEALTHYLAX) 3350 17 GM PACKET PO PRN (19:03)
[2022-09-19] MEDS ORDERED: guaiFENesin 600 MG TABLET.ER (FP) PO PRN (19:03)
[2022-09-19] MEDS ORDERED: ONDANSETRON *ODT* 4 MG TABLET SL PRN (19:03)
[2022-09-19] MEDS ORDERED: MAGNESIUM HYDROX 2400MG/30ML ORAL SUSPENSION 30 ML CUP PO PRN (19:03)
[2022-09-19] MEDS ORDERED: NALOXONE HCL 0.4 MG/ML VIAL IM PRN (19:03)
[2022-09-19] MEDS ORDERED: IBUPROFEN 600 MG TABLET (FP) PO ONE (19:44)
[2022-09-19] MEDS: IBUPROFEN 600 MG TABLET (FP) PO PRN (19:49)
[2022-09-19] MEDS: diazePAM 5 MG TABLET PO SCH (22:26)
[2022-09-19] MEDS: hydrOXYzine PAMOATE 25 MG CAPSULE (FP) PO PRN (22:26)
[2022-09-19] MEDS: METHOCARBAMOL 500 MG TABLET PO PRN (22:26)
[2022-09-19] MEDS: THIAMINE HCL 100 MG TABLET (FP) PO SCH (22:26)
[2022-09-19] MEDS: MELATONIN 5 MG TABLETS PO SCH (22:26)
[2022-09-20] MEDS: diazePAM 5 MG TABLET PO SCH ×4 (05:49→22:22)
[2022-09-20] MEDS ORDERED: methaDONE HCL 10 MG TABLET PO SCH (07:30)
[2022-09-20] MEDS: PRENATAL VITAMINS W/ FOLIC ACID TABLET (FP) PO SCH (10:15)
[2022-09-20 11:32] LABS: HEMATOCRIT 40.1 % (35.4-49); HEMOGLOBIN 13.5 GM/dL (11.7-16.9); MCH 27.9 pg (25.7-33.7); MCHC 33.7 g/dl (32.0-35.9); MEAN CELL VOLUME 82.7 fl (80-96); MEAN PLT VOLUME 8.1 fl (7.5-11.1); PLATELET COUNT 272 10^3/uL (134-434); RBC 4.84 M/mm3 (4.00-5.60); RDW 14.5 % (11.9-15.9); WHITE BLOOD COUNT 7.3 K/mm3 (4.0-10.0)
[2022-09-20 12:14] LABS: POTASSIUM 3.8 mmol/L (3.5-5.1)
[2022-09-20 12:31] LABS: CALCIUM 9.8 mg/dL (8.5-10.1)
[2022-09-20 12:32] LABS: ALBUMIN 4.2 g/dl (3.4-5.0); BLOOD UREA NITROGEN 18.8 mg/dL (7-18)
[2022-09-20 12:35] LABS: CREATININE 0.9 mg/dL (0.55-1.3)
[2022-09-20 12:36] LABS: BILIRUBIN,TOTAL 1.4 mg/dL (0.2-1); TOT PROT 7.9 g/dl (6.4-8.2)
[2022-09-20] MEDS: THIAMINE HCL 100 MG TABLET (FP) PO SCH (22:22)
[2022-09-20] MEDS: hydrOXYzine PAMOATE 25 MG CAPSULE (FP) PO PRN (22:22)
[2022-09-20] MEDS: METHOCARBAMOL 500 MG TABLET PO PRN (22:22)
[2022-09-20] MEDS: MELATONIN 5 MG TABLETS PO SCH (22:22)
[2022-09-21] MEDS: diazePAM 5 MG TABLET PO SCH ×3 (05:41→22:28)
[2022-09-21] MEDS: IBUPROFEN 600 MG TABLET (FP) PO PRN (10:23)
[2022-09-21] MEDS: METHOCARBAMOL 500 MG TABLET PO PRN ×2 (10:23→19:45)
[2022-09-21] MEDS: PRENATAL VITAMINS W/ FOLIC ACID TABLET (FP) PO SCH (10:23)
[2022-09-21] MEDS: diazePAM 5 MG TABLET PO PRN (19:43)
[2022-09-21] MEDS: THIAMINE HCL 100 MG TABLET (FP) PO SCH (22:27)
[2022-09-21] MEDS: hydrOXYzine PAMOATE 25 MG CAPSULE (FP) PO PRN (22:27)
[2022-09-21] MEDS: MELATONIN 5 MG TABLETS PO SCH (22:27)
[2022-09-22] MEDS: diazePAM 5 MG TABLET PO SCH ×2 (05:37→17:53)
[2022-09-22] MEDS: PRENATAL VITAMINS W/ FOLIC ACID TABLET (FP) PO SCH (10:07)
[2022-09-22] MEDS: diazePAM 5 MG TABLET PO PRN (10:08)
[2022-09-22 11:48] LABS: BLOOD UREA NITROGEN 11.6 mg/dL (7-18)
[2022-09-22 11:53] LABS: BILIRUBIN,TOTAL 0.7 mg/dL (0.2-1)
[2022-09-22] MEDS: MELATONIN 5 MG TABLETS PO SCH (22:14)
[2022-09-22] MEDS: THIAMINE HCL 100 MG TABLET (FP) PO SCH (22:14)
[2022-09-22] MEDS: METHOCARBAMOL 500 MG TABLET PO PRN (22:15)
[2022-09-22] MEDS: hydrOXYzine PAMOATE 25 MG CAPSULE (FP) PO PRN (22:15)
[2022-09-23] MEDS ORDERED: diazePAM 5 MG TABLET PO ONE (06:00)
[2022-09-23 07:14] VITALS: BP 142/85; PULSE 73; RESP 16; TEMP 98
== END 2022-09-23 07:11 | disposition home or self-care (01) | DRG 773 ==
LOC: YASAS 15:42 → Y3N 19:44
PROVIDERS: ADMIT Allergy & Immunology; ATTEND Surgery
PROC: HZ2ZZZZ Detoxification Services for Substance Abuse Treatment (ICD-10-PCS; principal; 2022-09-19)
DX: F11.20 Opioid dependence, uncomplicated (principal); F13.230 Sedative, hypnotic or anxiolytic dependence with withdrawal, uncomplicated; F12.20 Cannabis dependence, uncomplicated; F17.210 Nicotine dependence, cigarettes, uncomplicated; F41.9 Anxiety disorder, unspecified; M54.50 Low back pain, unspecified; G89.18 Other acute postprocedural pain
CPT/HCPCS: 36415; 80053; 82247; 84450; 84520; 85027; 86780; 87086; 87635; C9803-CS; U0003; U0005